=== PATIENT | female | born 1960 | race Caucasian/White ===

== ENCOUNTER 2016-10-30 05:53 | Day surgery (SDC) | payer OTHER ==
[2016-10-30] MEDS ORDERED: Lactated Ringers 1,000 ML IV SCH (06:30)
[2016-10-30] MEDS ORDERED: DIPRIVAN 200 MG/20 ML IV ONE (08:00)
[2016-10-30 08:57] VITALS: BP 131/78; PULSE 53; O2SAT 100
--- NOTE | 2016-10-30 10:19 | OP ---
SURGERY DATE/TIME: 10/30/2016724 PREOPERATIVE DIAGNOSIS: Screening exam. POSTOPERATIVE DIAGNOSIS: Small polyp in the sigmoid colon. PROCEDURE: Colonoscopy with biopsy. SURGEON: Dr. Díaz. ANESTHESIA: Medications given by anesthesia department. HISTORY: The patient is a 56 year-old white female presenting now for first screening colonoscopy. She reports her mother of colon cancer. The patient was appraised of the risks of the procedure including the risk of perforation, phlebitis, untoward reaction to medication, bleeding, and missed lesions. The patient verbalized her understanding and desired to have the procedure performed. DESCRIPTION OF PROCEDURE: The patient was given the medications by the anesthesia department. She had continuous pulse oximetry, ECG monitoring, intermittent blood pressure monitoring, and tidal CO2 monitoring during the examination. She was placed in the left lateral decubitus position. A digital rectal examination was performed and revealed normal anal sphincter tone and no masses. The flexible Olympus pediatric colonoscope was used to intubate the rectum. A view of the colon was developed sequentially to the cecum. Upon insertion and withdrawal, there was noted one small polyp in the sigmoid colon which was suspicious for adenomatous change. Biopsies were obtained. The scope was removed from the patient who tolerated the procedure well and sent back to outpatient recovery in good condition. The prep was noted to be good.
== END 2016-10-30 08:50 | disposition home or self-care (01) ==
LOC: SDC 05:53
PROVIDERS: ATTEND Family Medicine
PROC: 0DBN8ZX Excision of Sigmoid Colon, Via Natural or Artificial Opening Endoscopic, Diagnostic (ICD-10-PCS; principal; 2016-10-30)
DX: Z12.11 Encounter for screening for malignant neoplasm of colon (principal)
CPT/HCPCS: 00810; 36415; J2704

== ENCOUNTER 2017-10-02 20:14 | Observation (INO) | payer OTHER ==
[2017-10-02] MEDS ORDERED: Pepcid 20 MG VIAL IV ONE ×2 (20:20→20:23)
[2017-10-02] MEDS ORDERED: solu-MEDROL 125 MG IV ONE (20:20)
[2017-10-02] MEDS ORDERED: solu-MEDROL 125 MG ONE (20:23)
[2017-10-02] MEDS ORDERED: Sodium Chloride 0.9% 1000 ML 1,000 ML ONE ×2 (20:24→20:38)
--- NOTE | 2017-10-02 20:33 | ERPHSYRPT ---
- History of Present Illness Time Seen by Provider: 10/02/17 20:28 Source: patient, EMS Exam Limitations: no limitations Physician History: patient with history of peanut allerry who presents status post exposure to peanuts. Apparently pt. was around walnuts, but denies ingesting any. In either case, patient began having shortness of breath along with hives. EMS was calledprior to patient receiving an EpiPen injection. Upon EMS arrival, patient's O2 sats were noted to be in the 80s along with generalized hives. Patient was able to talk in multiple word sentences and was awake and alert. Patient also received Benadryl 50 mg IV along with albuterol breathing treatment. Rash was improved, as well as her O2 sats, which was above 93% upon arrival. Patient denies any chest pain, fever, recent cough, vomiting, diarrhea or any recent illnesses. Timing/Duration: hour(s) (1) Severity: severe Modifying Factors: Improves With: other (Walnuts exposure) Associated Symptoms: shortness of breath, rash, weakness, No nausea, No vomiting , No heartburn, No diaphoresis, No cough, No headaches, No loss of appetite, No syncope, No seizure Allergies/Adverse Reactions: peanut Allergy (Severe, Verified 10/30/16 06:12) Difficulty Breathing peanut oil Allergy (Severe, Verified 10/30/16 06:12) Difficulty Breathing codeine [Codeine] Adverse Reaction (Severe, Verified 10/30/16 06:12) Headache hydrocodone [Hydrocodone] Adverse Reaction (Severe, Verified 10/30/16 06:12) Headache Home Medications: Duloxetine HCl [Duloxetine HCl] 30 mg PO DAILY 10/02/17 [History] Lisinopril/Hydrochlorothiazide [Lisinopril-Hctz 10-12.5 mg Tab] 1 tab PO DAILY 10/02/17 [History] Hx Tetanus, Diphtheria Vaccination/Date Given: Yes Hx Influenza Vaccination/Date Given: No Hx Pneumococcal Vaccination/Date Given: No - Review of Systems Constitutional: No Fever, No Chills Eyes: No Symptoms Ears, Nose, & Throat: No Symptoms Respiratory: Dyspnea, Wheezing, No Cough Cardiac: No Symptoms, No Chest Pain, No Edema, No Syncope Abdominal/Gastrointestinal: No Symptoms, No Abdominal Pain, No Nausea, No Vomiting, No Diarrhea Genitourinary Symptoms: No Symptoms, No Dysuria Musculoskeletal: No Symptoms, No Back Pain, No Neck Pain Skin: Rash (Generalized erythematous rash) Neurological: No Dizziness, No Focal Weakness, No Sensory Changes Psychological: No Symptoms Endocrine: No Symptoms Hematologic/Lymphatic: No Symptoms All Other Systems: Reviewed and Negative - Past Medical History Pertinent Past Medical History: Yes Neurological History: No Pertinent History ENT History: No Pertinent History Cardiac History: No Pertinent History Respiratory History: Pulmonary Embolism, Sleep Apnea Endocrine Medical History: No Pertinent History Musculoskeletal History: No Pertinent History GI Medical History: Ulcer History: No Pertinent History Psycho-Social History: No Pertinent History, Depression Female Reproductive Disorders: No Pertinent History - Past Surgical History Past Surgical History: Yes Neuro Surgical History: No Pertinent History Cardiac: No Pertinent History Respiratory: No Pertinent History Gastrointestinal: No Pertinent History Genitourinary: No Pertinent History Musculoskeletal: No Pertinent History Female Surgical History: Section, Tubal Ligation, Other Other Surgical History: "bladder tie up" - Social History Smoking Status: Current every day smoker How long have you smoked: 30yr Exposure to second hand smoke: Yes Alcohol Use: few times a week Drug Use: none Patient Lives Alone: No - Nursing Vital Signs Nursing Vital Signs: Initial Vital Signs Temperature 96.4 F 10/02/17 20:26 Pulse Rate 135 H 10/02/17 20:26 Respiratory Rate 30 H 10/02/17 20:26 Blood Pressure 78/52 10/02/17 20:26 O2 Sat by Pulse Oximetry 88 L 10/02/17 20:26 Pain Scale Pain Intensity 0 aSolu-Medrol and. - Physical Exam General Appearance: mild distress Eye Exam: PERRL/EOMI, eyes nml inspection Ears, Nose, Throat Exam: normal ENT inspection, TMs normal, pharynx normal, moist mucous membranes Neck Exam: normal inspection, non-tender, supple, full range of motion Respiratory Exam: normal breath sounds, lungs clear, No respiratory distress Cardiovascular Exam: regular rate/rhythm, normal heart sounds, normal peripheral pulses, tachycardia, capillary refill <2 sec Gastrointestinal/Abdomen Exam: soft, normal bowel sounds, No tenderness, No mass Back Exam: normal inspection, normal range of motion, No CVA tenderness, No vertebral tenderness Extremity Exam: normal inspection, normal range of motion, pelvis stable Neurologic Exam: alert, oriented x 3, cooperative, normal mood/affect, nml cerebellar function, nml station & gait, sensation nml, No motor deficits Skin Exam: normal color, warm, dry, rash (patient with erythematous rash on trunk and extremities. We'll her) Lymphatic Exam: No adenopathy SpO2 Interpretation: hypoxic Oxygen Delivery: Nasal Cannula (4) - Course Nursing assessment & vital signs reviewed: Yes EKG Interpreted by Me: RATE (130), Sinus Tach, NORMAL AXIS, NORMAL INTERVALS, Non-specific ST Changes - Radiology Exams Chest X-ray Interpretation: Interpreted by me, No Pneumonia Ordered Tests: Active Orders 24 hr Category Date Time Status ACCUCHECK [Accucheck] STAT Care 10/02/17 20:51 Active Loan Processor STAT Care 10/02/17 20:27 Active EKG-ER Only STAT Care 10/02/17 20:24 Active IV Insertion STAT Care 10/02/17 20:49 Active IV Insertion-2nd Peripheral STAT Care 10/02/17 20:49 Active CHEST 1 VIEW (PORTABLE) Stat Exams 10/02/17 20:26 Taken ABG [ARTERIAL BLOOD GASES] Stat Lab 10/02/17 20:45 Completed BMP Stat Lab 10/02/17 20:38 Completed CBC W DIFF Stat Lab 10/02/17 20:38 Completed Lactic Acid Urgent Lab 10/02/17 20:55 Results Manual Differential NC Stat Lab 10/02/17 20:38 Completed Respiratory Nebulizer STAT RT 10/02/17 20:42 Completed Medication Summary Discontinued Medications Generic Name Dose Route Start Last Admin Trade Name Freq PRN Reason Stop Dose Admin Albuterol Sulfate 2.5 mg 10/02/17 20:42 10/02/17 21:04 Proventil 2.5 Mg/3 Ml Neb IH 10/02/17 20:43 2.5 mg STAT ONE Administration Albuterol Sulfate Confirm 10/02/17 20:59 Proventil 2.5 Mg/3 Ml Neb Administered 10/02/17 21:00 Dose 2.5 mg IH .STK-MED ONE Famotidine 20 mg 10/02/17 20:20 10/02/17 20:48 Pepcid 20 Mg Vial IV 10/02/17 20:21 20 mg STAT ONE Administration Famotidine Confirm 10/02/17 20:23 Pepcid 20 Mg Vial Administered 10/02/17 20:24 Dose 20 mg IV .STK-MED ONE Sodium Chloride Confirm 10/02/17 20:24 Sodium Chloride 0.9% 1000 Ml Administered 10/02/17 20:25 Dose 1,000 mls @ ud .ROUTE .STK-MED ONE Sodium Chloride 500 mls @ 999 mls/hr 10/02/17 20:24 10/02/17 20:48 Sodium Chloride 0.9% 1000 Ml IV 10/02/17 20:54 999 mls/hr .Q31M STA Administration Sodium Chloride Confirm 10/02/17 20:38 Sodium Chloride 0.9% 1000 Ml Administered 10/02/17 20:39 Dose 1,000 mls @ ud .ROUTE .STK-MED ONE Methylprednisolone Sodium Succinate 125 mg 10/02/17 20:20 10/02/17 20:47 Solu-Medrol 125 Mg IV 10/02/17 20:21 125 mg STAT ONE Administration Methylprednisolone Sodium Succinate Confirm 10/02/17 20:23 Solu-Medrol 125 Mg Administered 10/02/17 20:24 Dose 125 mg .ROUTE .STK-MED ONE Lab/Rad Data: Laboratory Result Diagrams 10/02/17 20:38 10/02/17 20:38 Laboratory Results 10/02/17 10/02/17 10/02/17 Range/Units 20:55 20:45 20:38 WBC (4.0-10.5) K/mm3 RBC (4.1-5.4) M/mm3 Hgb (12.0-16.0) gm/dl Hct (35-47) % MCV (78-100) fl MCH (26-32) pg MCHC (32-36) g/dl RDW (11.5-14.0) % Plt Count (150-450) K/mm3 MPV (6-9.5) fl Absolute Granulocytes (1.4-6.9) Segmented Neutrophils (36.0-66.0) % Band Neutrophils (0.0-2.0) % Lymphocytes (Manual) (24-44) % Differential Comment Atypical Lymphocytes % Platelet Estimate (NORMAL) Puncture Site LEFT BRACHIAL pCO2 40 (35-45) mmHg pO2 86 (75-100) mmHg Base Excess -6.3 L (-2.0-2.0) O2 Saturation 91.8 L (94-100) g/dF ABG pH 7.30 L (7.35-7.45) ABG HCO3 19.7 L (22-28) ABG O2 Sat (Measured) 98.3 (95-100) % Nguyễn Test NOT APPLICABLE A-a Gradient 149 a/A Ratio 0.37 Hemoglobin 13.5 Carboxyhemoglobin 5.6 (0.0-6.9) % THgb Methemoglobin 1.0 L (1.4-1.5) % Temperature 37.0 C POC O2 Flow Rate 40 % Sodium 140 (137-145) mmol/L Potassium 2.4 L* 3.1 L (3.5-5.1) mmol/L Chloride 101 (98-107) mmol/L Carbon Dioxide 21 L (22-30) mmol/L Anion Gap 20.7 H (5-15) MEQ/L BUN 16 (7-17) mg/dL Creatinine 1.19 H (0.52-1.04) mg/dL Estimated GFR 50 ML/MIN Glucose 238 H (74-106) mg/dL Lactic Acid 4.6 H (0.4-2.0) Calcium 9.3 (8.4-10.2) mg/dL 10/02/17 Range/Units 20:38 WBC 6.3 (4.0-10.5) K/mm3 RBC 4.83 (4.1-5.4) M/mm3 Hgb 14.1 (12.0-16.0) gm/dl Hct 43.6 (35-47) % MCV 90.3 (78-100) fl MCH 29.2 (26-32) pg MCHC 32.3 (32-36) g/dl RDW 14.4 H (11.5-14.0) % Plt Count 323 (150-450) K/mm3 MPV 10.0 H (6-9.5) fl Absolute Granulocytes 3.23 (1.4-6.9) Segmented Neutrophils 41 (36.0-66.0) % Band Neutrophils 7 H (0.0-2.0) % Lymphocytes (Manual) 47 H (24-44) % Differential Comment NORMAL Atypical Lymphocytes 5 % Platelet Estimate NORMAL (NORMAL) Puncture Site pCO2 (35-45) mmHg pO2 (75-100) mmHg Base Excess (-2.0-2.0) O2 Saturation (94-100) g/dF ABG pH (7.35-7.45) ABG HCO3 (22-28) ABG O2 Sat (Measured) (95-100) % Nguyễn Test A-a Gradient a/A Ratio Hemoglobin Carboxyhemoglobin (0.0-6.9) % THgb Methemoglobin (1.4-1.5) % Temperature C POC O2 Flow Rate % Sodium (137-145) mmol/L Potassium (3.5-5.1) mmol/L Chloride (98-107) mmol/L Carbon Dioxide (22-30) mmol/L Anion Gap (5-15) MEQ/L BUN (7-17) mg/dL Creatinine (0.52-1.04) mg/dL Estimated GFR ML/MIN Glucose (74-106) mg/dL Lactic Acid (0.4-2.0) Calcium (8.4-10.2) mg/dL - Progress Progress: improved Progress Note: 10/02/17 22:55 patient was given Solu-Medrol, Pepcid, albuterol nebulizer along with IV fluids. This did improve patient's blood pressure, O2 sats up to greater than 95% along with mental status. Despite improvement, patient had a severe allergic reaction. We will admit patient for further treatment and care Discussed with .: Rolando Will see patient in: ED Counseled pt/family regarding: lab results, diagnosis, rad results - Departure Time of Disposition: 22:58 Departure Disposition: Observation Clinical Impression: Allergic reaction Condition: Stable Critical Care Time: No Referrals: NNEKA CANADA [Primary Care Provider] -
[2017-10-02] MEDS ORDERED: PROVENTIL 2.5 MG/3 ML NEB IH ONE ×2 (20:42→20:59)
[2017-10-02 20:51] LABS: A-aADO2 149; ABG HEMOGLOBIN 13.5; ARTERIAL BLD GAS O2 SATURATION 98.3 % (95-100); ARTERIAL BLOOD GAS BASE EXCESS -6.3 (-2.0-2.0); ARTERIAL BLOOD GAS FIO2 40 %; ARTERIAL BLOOD GAS PCO2 40 mmHg (35-45); ARTERIAL BLOOD GAS PO2 86 mmHg (75-100); CARBOXYHEMOGLOBIN 5.6 % THgb (0.0-6.9); HCO3- 19.7 (22-28); HGB O2 SAT 91.8 g/dF (94-100); paO2 pAO1 0.37
[2017-10-02 20:52] LABS: ABG POTASSIUM 2.4 (3.5-5.1); ABG SITE LEFT BRACHIAL
[2017-10-02 20:57] LABS: Lactic Acid 4.6 (0.4-2.0)
[2017-10-02 21:07] LABS: Granulocyte Absolute (ANC) 3.23 (1.4-6.9); Hematocrit 43.6 % (35-47); Hemoglobin 14.1 gm/dl (12.0-16.0); Mean Cell Volume 90.3 fl (78-100); Mean Corpuscular Hemoglobin 29.2 pg (26-32); Mean Corpuscular Hgb Concent. 32.3 g/dl (32-36); Platelet Count 323 K/mm3 (150-450); Red Blood Count 4.83 M/mm3 (4.1-5.4); Red Cell Distribution Width 14.4 % (11.5-14.0); White Blood Count 6.3 K/mm3 (4.0-10.5)
[2017-10-02 21:19] LABS: ANION GAP 20.7 MEQ/L (5-15); Calcium 9.3 mg/dL (8.4-10.2); Creatinine 1 1.19 mg/dL (0.52-1.04); Potassium 3.1 mmol/L (3.5-5.1)
[2017-10-02 22:11] LABS: ATYPICAL LYMPHS 5 %; BAND 7 % (0.0-2.0); Lymphocytes 47 % (24-44); Neutrophils 41 % (36.0-66.0); Platelet Estimate NORMAL (NORMAL); Total Cells Counted 100
[2017-10-02 23:22] LABS: Lactic Acid 3.8 (0.4-2.0)
[2017-10-02] MEDS ORDERED: BENADRYL 25 MG CAPSULE PO PRN (23:52)
[2017-10-03] MEDS: solu-MEDROL 125 MG IV SCH ×2 (00:28→06:00)
[2017-10-03 06:29] LABS: Lactic Acid 4.7 (0.4-2.0)
[2017-10-03] MEDS ORDERED: Lactated Ringers 1,000 ML IV ONE (07:52)
--- NOTE | 2017-10-03 07:52 | PCM.HP ---
History of Present Illness - Chief Complaint Chief Complaint: alleric reaction Date: 10/03/17 History of Present Illness: is a 57 year old female. Medications & Allergies Home Medications: Home Medication List Duloxetine HCl [Duloxetine HCl] 30 mg PO DAILY 10/02/17 [History Confirmed 10/02] Lisinopril/Hydrochlorothiazide [Lisinopril-Hctz 10-12.5 mg Tab] 1 tab PO DAILY 10/02/17 [History Confirmed 10/02/17] Allergies/Adverse Reactions: Allergies Allergy/AdvReac Type Severity Reaction Status Date / Time peanut Allergy Severe Difficulty Verified 10/30/16 06:12 Breathing peanut oil Allergy Severe Difficulty Verified 10/30/16 06:12 Breathing codeine [Codeine] AdvReac Severe Headache Verified 10/30/16 06:12 hydrocodone [Hydrocodone] AdvReac Severe Headache Verified 10/30/16 06:12 bee pollen AdvReac Hives Verified 10/03/17 07:26 bee venom protein (honey bee) AdvReac Hives Verified 10/03/17 07:26 Honey AdvReac Hives Uncoded 10/03/17 07:26 - Past Medical History Past Medical History: Yes Neurological History: No Pertinent History ENT History: No Pertinent History Cardiac History: No Pertinent History Respiratory History: Pulmonary Embolism, Sleep Apnea Endocrine Medical History: No Pertinent History Musculoskelatal History: No Pertinent History GI Medical History: Ulcer History: No Pertinent History Pyscho-Social History: No Pertinent History, Depression Reproductive Disorders: No Pertinent History - Female History Are you now?: No - Past Surgical History Past Surgical History: Yes Neuro Surgical History: No Pertinent History Cardiac History: No Pertinent History Respiratory Surgery: No Pertinent History GI Surgical History: No Pertinent History Genitourinary Surgical Hx: No Pertinent History Musculskeletal Surgical Hx: No Pertinent History Female Surgical History: Section, Tubal Ligation, Other Other Surgical History: "bladder tie up" - Social History Smoking Status: Current every day smoker How long have you smoked: 1/2 pk Exposure to second hand smoke: Yes Alcohol: None Drug Use: none - Physical Exam Vital Signs: Vital Signs - 24 hr Temp Pulse Resp BP Pulse Ox 10/03/17 07:36 97.6 F 72 18 140/68 96 10/03/17 04:00 98.5 F 75 18 129/74 94 L 10/03/17 03:43 95 10/03/17 01:34 98.0 F 84 17 119/69 99 10/02/17 22:40 95 H 17 111/74 99 10/02/17 21:53 81 18 138/76 98 10/02/17 21:50 83 20 138/76 98 10/02/17 21:07 102 H 20 99 10/02/17 21:06 90 18 124/76 100 10/02/17 20:43 97 10/02/17 20:26 96.4 F 135 H 30 H 78/52 88 L Oxygen-Last 24 hours O2 Percentage 2 Liters = 28% O2 Percentage 2 Liters = 28% O2 Percentage 4 Liters = 36% O2 Percentage 4 Liters = 36% Results - Labs Lab/Micro Results: Lab Results-Last 24 Hours 10/03/17 Range/Units 05:20 Lactic Acid 4.7 H (0.4-2.0) - Other Procedures and Tests Respiratory Therapy 10/03/17 01:56 Smoking Cessation Education ONCE
--- NOTE | 2017-10-03 09:17 | XRAY ---
Indication: Short of breath. Comparison: December 05, 2015. Portable chest again hyperinflated and clear. Heart and mediastinal structures within normal limits. Bony thorax intact. Impression: Stable nonacute chest.
[2017-10-03] MEDS ORDERED: Cymbalta 30 MG Capsule PO SCH (10:00)
[2017-10-03] MEDS ORDERED: hydroDIURIL 25 MG PO SCH (10:00)
[2017-10-03] MEDS ORDERED: NON-FORMULARY ITEM (Lisinopril/Hydrochlorothiazide [Lisinopril-Hctz 10-12.5 Mg Tab] 1 TAB) PO SCH (10:00)
[2017-10-03] MEDS ORDERED: Zestril 10 MG PO SCH (10:00)
[2017-10-03 11:43] VITALS: BP 132/65; PULSE 66; O2SAT 95
--- NOTE | 2017-10-03 12:41 | PCM.DCORD ---
- Discharge Discharge Date: 10/03/17 Disposition: Home, Self-Care Condition: Stable Prescriptions: Continue Lisinopril/Hydrochlorothiazide [Lisinopril-Hctz 10-12.5 mg Tab] 1 tab PO DAILY Duloxetine HCl 30 mg PO DAILY Follow up with: NNEKA CANADA [Primary Care Provider] - 1 Week
[2017-10-03] MEDS ORDERED: solu-MEDROL 125 MG IV SCH (14:00)
== END 2017-10-03 14:30 | disposition home or self-care (01) ==
LOC: ED 20:14 → MED SURG 23:50
PROVIDERS: ADMIT Family Medicine; ATTEND Family Medicine
DX: T78.1XXA Other adverse food reactions, not elsewhere classified, initial encounter (principal); Z86.711 Personal history of pulmonary embolism; G47.30 Sleep apnea, unspecified; F32.9 Major depressive disorder, single episode, unspecified; Z72.0 Tobacco use
CPT/HCPCS: 36000; 36415; 36600; 51702; 71045; 80048; 82375; 82803; 82962; 83605; 85025; 93005; 93041; 93268; 94640; 96360; 96365; 96374; 96375; 99285; G0378; J2930; A9270-GY

== ENCOUNTER 2018-11-24 11:55 | Observation (INO) | payer OTHER ==
[2018-11-24] MEDS ORDERED: MORPHINE SULFATE 4 MG INJ IV ONE (12:14)
[2018-11-24] MEDS ORDERED: ZOFRAN ODT 4 MG PO ONE (12:14)
[2018-11-24] MEDS ORDERED: Sodium Chloride 0.9% 1000 ML 1,000 ML IV STA (12:14)
--- NOTE | 2018-11-24 12:17 | ERPHSYRPT ---
- History of Present Illness Time Seen by Provider: 11/24/18 12:08 Historian: patient Exam Limitations: no limitations Patient Subjective Stated Complaint: Pt states "The pain started last night, I thought it was gas but it is just getting worse. It hurts on my lower abdomen. We went to [facility] but they were packed so we just thought we would come to the ed." Triage Nursing Assessment: Pt presnted alert and oriented X 3, skin pwd. Pt ambulates with a hunched over gait holding onto her abodmen. Pt in no apparent respiratory distress. Physician History: 58-year-old white female arrives with complaint of right lower quadrant abdominal pain described as sharp symptoms going on since last night she has not any vomiting no diarrhea no fevers. Past medical history includes sleep apnea, pulmonary embolism, ulcers, depression. Past surgical history includes , tubal ligation, bladder suspension. Social history includes tobacco use occasional alcohol use she denies illicit drug use Timing/Duration: yesterday (last night) Activities at Onset: none Quality: sharpness Abdominal Pain Onset Location: RLQ Pain Radiation: no radiation Severity of Pain-Max: moderate Modifying Factors: Improves With: nothing Associated Symptoms: No back, No chest pain, No diaphoresis, No diarrhea, No fever/chills, No fatigue, No headache, No heartburn, No loss of appetite, No nausea, No neck pain, No rash, No shortness of breath, No syncope, No vomiting, No weakness Previous symptoms: no prior history Allergies/Adverse Reactions: peanut Allergy (Severe, Verified 10/30/16 06:12) Difficulty Breathing peanut oil Allergy (Severe, Verified 10/30/16 06:12) Difficulty Breathing codeine [Codeine] Adverse Reaction (Severe, Verified 10/30/16 06:12) Headache hydrocodone [Hydrocodone] Adverse Reaction (Severe, Verified 10/30/16 06:12) Headache bee pollen Adverse Reaction (Verified 10/03/17 07:26) Hives bee venom protein (honey bee) Adverse Reaction (Verified 10/03/17 07:26) Hives Honey Adverse Reaction (Uncoded 10/03/17 07:26) Hives Home Medications: No Reportable Medications [No Reported Medications] 11/24/18 [History] Hx Tetanus, Diphtheria Vaccination/Date Given: Yes Hx Influenza Vaccination/Date Given: Yes Hx Pneumococcal Vaccination/Date Given: No Immunizations Up to Date: Yes - Review of Systems Constitutional: No Fever, No Chills Eyes: No Symptoms Ears, Nose, & Throat: No Symptoms Respiratory: No Cough, No Dyspnea Cardiac: No Chest Pain, No Edema, No Syncope Abdominal/Gastrointestinal: Abdominal Pain (right lower quadrant abdominal pain) , No Nausea, No Vomiting, No Diarrhea, No Constipation, No Hematemesis, No Hematochezia, No Melena, No Dysphagia, No Appetite Changes Genitourinary Symptoms: No Dysuria Musculoskeletal: No Back Pain, No Neck Pain Skin: No Rash Neurological: No Dizziness, No Focal Weakness, No Sensory Changes Psychological: No Symptoms Endocrine: No Symptoms All Other Systems: Reviewed and Negative - Past Medical History Pertinent Past Medical History: Yes Neurological History: No Pertinent History ENT History: No Pertinent History Cardiac History: No Pertinent History Respiratory History: Pulmonary Embolism, Sleep Apnea Endocrine Medical History: No Pertinent History Musculoskeletal History: No Pertinent History GI Medical History: Ulcer History: No Pertinent History Psycho-Social History: No Pertinent History, Depression Female Reproductive Disorders: No Pertinent History - Past Surgical History Past Surgical History: Yes Neuro Surgical History: No Pertinent History Cardiac: No Pertinent History Respiratory: No Pertinent History Gastrointestinal: No Pertinent History Genitourinary: No Pertinent History Musculoskeletal: No Pertinent History Female Surgical History: Section, Tubal Ligation, Other Other Surgical History: "bladder tie up" - Social History Smoking Status: Current every day smoker How long have you smoked: years Exposure to second hand smoke: Yes Alcohol Use: few times a week Drug Use: none Patient Lives Alone: No - Female History Hx Now: No - Nursing Vital Signs Nursing Vital Signs: Initial Vital Signs Temperature 98.4 F 11/24/18 11:59 Pulse Rate 105 H 11/24/18 11:59 Respiratory Rate 18 11/24/18 11:59 Blood Pressure 159/92 11/24/18 11:59 O2 Sat by Pulse Oximetry 97 11/24/18 11:59 Pain Scale Pain Intensity 6 - Physical Exam General Appearance: mild distress, alert Eye Exam: PERRL/EOMI, eyes nml inspection Ears, Nose, Throat Exam: normal ENT inspection, pharynx normal, moist mucous membranes Neck Exam: normal inspection, non-tender, supple, full range of motion Respiratory Exam: normal breath sounds, lungs clear, No respiratory distress Cardiovascular Exam: regular rate/rhythm, normal heart sounds, capillary refill <2 sec Gastrointestinal/Abdomen Exam: soft, normal bowel sounds, tenderness (right lower quadrant abdominal tenderness), No distention, No mass, No guarding, No ecchymosis, No pulsatile mass, No rebound, No hernia, No hepatomegaly, No organomegaly, No splenomegaly Back Exam: normal inspection, normal range of motion, No CVA tenderness, No vertebral tenderness Extremity Exam: normal inspection, normal range of motion, pelvis stable Neurologic Exam: alert, oriented x 3, cooperative, dental practitioner II-XII nml as tested, normal mood/affect, nml cerebellar function, sensation nml, No motor deficits Skin Exam: normal color, warm, dry SpO2 Interpretation: normal (97%) SpO2: 97 Ordered Tests: Active Orders 24 hr Category Date Time Status IV Insertion STAT Care 11/24/18 12:14 Completed ABDOMEN AND PELVIS W CONTRAST [CT] Stat Exams 11/24/18 12:49 Completed AMYLASE Stat Lab 11/24/18 12:10 Completed CBC W DIFF Stat Lab 11/24/18 12:10 Completed CMP Stat Lab 11/24/18 12:10 Completed LIPASE Stat Lab 11/24/18 12:10 Completed UA W/RFX UR CULTURE Stat Lab 11/24/18 13:53 Completed Medication Summary Generic Name Dose Route Start Last Admin Trade Name Freq PRN Reason Stop Dose Admin Potassium Chloride/Dextrose/Sod Cl 1,000 mls @ 100 mls/hr 11/24/18 19:00 18:49 D5w/0.45ns W/ 20meq Kcl 1000 Ml IV 12/24/18 18:59 100 mls/hr .Q10H NANNETTE Administration Discontinued Medications Generic Name Dose Route Start Last Admin Trade Name Freq PRN Reason Stop Dose Admin Sodium Chloride 1,000 mls @ 999 mls/hr 11/24/18 12:14 11/24/18 14:11 Sodium Chloride 0.9% 1000 Ml IV 11/24/18 13:14 Infused .Q1H1M STA Infusion Morphine Sulfate 4 mg 11/24/18 12:14 11/24/18 12:23 Morphine Sulfate 4 Mg Inj IV 11/24/18 12:15 4 mg STAT ONE Administration Ondansetron HCl 4 mg 11/24/18 12:14 11/24/18 12:25 Zofran Odt 4 Mg PO 11/24/18 12:15 Not Given STAT ONE Ondansetron HCl 4 mg 11/24/18 12:24 11/24/18 12:25 Zofran 4 Mg/2 Ml Vial IV 11/24/18 12:25 4 mg STAT ONE Administration Lab/Rad Data: Laboratory Result Diagrams 11/24/18 12:10 11/24/18 12:10 Laboratory Results 11/24/18 11/24/18 11/24/18 Range/Units 13:53 12:10 12:10 WBC 13.7 H (4.0-10.5) K/mm3 RBC 4.91 (4.1-5.4) M/mm3 Hgb 14.4 (12.0-16.0) gm/dl Hct 43.7 (35-47) % MCV 89.0 (78-100) fl MCH 29.3 (26-32) pg MCHC 33.0 (32-36) g/dl RDW 14.6 H (11.5-14.0) % Plt Count 288 (150-450) K/mm3 MPV 10.2 H (6-9.5) fl Gran % 84.9 H (36.0-66.0) % Eos # (Auto) 0.04 (0-0.5) Absolute Lymphs (auto) 0.95 L (1.0-4.6) Absolute Monos (auto) 1.07 (0.0-1.3) Lymphocytes % 6.9 L (24.0-44.0) % Monocytes % 7.8 (0.0-12.0) % Eosinophils % 0.3 (0.00-5.0) % Basophils % 0.1 (0.0-0.4) % Absolute Granulocytes 11.62 H (1.4-6.9) Basophils # 0.01 (0-0.4) Sodium 137 (137-145) mmol/L Potassium 3.9 (3.5-5.1) mmol/L Chloride 100 (98-107) mmol/L Carbon Dioxide 24 (22-30) mmol/L Anion Gap 16.9 H (5-15) MEQ/L BUN 10 (7-17) mg/dL Creatinine 0.97 (0.52-1.04) mg/dL Estimated GFR > 60.0 ML/MIN Glucose 123 H (74-106) mg/dL Calcium 10.0 (8.4-10.2) mg/dL Total Bilirubin 0.50 (0.2-1.3) mg/dL AST 21 (14-36) U/L ALT 24 (0-35) U/L Alkaline Phosphatase 126 (38-126) U/L Serum Total Protein 8.2 (6.3-8.2) g/dL Albumin 4.5 (3.5-5.0) g/dL Amylase 70 (30-110) U/L Lipase 50 (23-300) U/L Urine Color STRAW (YELLOW) Urine Appearance CLEAR (CLEAR) Urine pH 7.0 (5-6) Ur Specific [place] 1.017 (1.005-1.025) Urine Protein NEGATIVE (Negative) Urine Ketones NEGATIVE (NEGATIVE) Urine Blood NEGATIVE (0-5) Ck/ul Urine Nitrite NEGATIVE (NEGATIVE) Urine Bilirubin NEGATIVE (NEGATIVE) Urine Urobilinogen NEGATIVE (0-1) mg/dL Ur Leukocyte Esterase NEGATIVE (NEGATIVE) Urine WBC (Auto) NONE (0-5) /HPF Urine RBC (Auto) NONE (0-2) /HPF U Epithel Cells (Auto) RARE (FEW) /HPF Urine Bacteria (Auto) NONE (NEGATIVE) /HPF Urine Mucus (Auto) SLIGHT (NEGATIVE) /HPF Urine Culture Reflexed NO (NO) Urine Glucose NEGATIVE (NEGATIVE) mg/dL - Progress Progress: improved Progress Note: 11/24/18 18:51 Patient with acute appendicitis on CT abdomen. Dr. Perry was contacted. He requested that Dr. Deng take care of the patient on the floor. took the patient to surgery. case was discussed with Dr. Deng as well 11/24/18 18:52 - Departure Departure Disposition: Observation Clinical Impression: Acute appendicitis Qualifiers: Acute appendicitis type: unspecified acute appendicitis type Qualified Code(s) : K35.80 - Unspecified acute appendicitis Abdominal pain Qualifiers: Abdominal location: right lower quadrant Qualified Code(s): R10.31 - Right lower quadrant pain Condition: Fair Critical Care Time: No
[2018-11-24] MEDS ORDERED: Zofran 4 MG/2 ML VIAL IV ONE ×2 (12:24→14:58)
[2018-11-24 12:46] LABS: ALBUMIN 4.5 g/dL (3.5-5.0); ALKALINE PHOSPHATASE 126 U/L (38-126); AMYLASE 70 U/L (30-110); ANION GAP 16.9 MEQ/L (5-15); BLOOD UREA NITROGEN 10 mg/dL (7-17); CHLORIDE 100 mmol/L (98-107); Carbon Dioxide 24 mmol/L (22-30); Creatinine 1 0.97 mg/dL (0.52-1.04); Glucose 123 mg/dL (74-106); LIPASE 50 U/L (23-300); Potassium 3.9 mmol/L (3.5-5.1); SGOT/AST 21 U/L (14-36); SGPT/ALT 24 U/L (0-35); SODIUM 137 mmol/L (137-145); Total Protein 8.2 g/dL (6.3-8.2)
[2018-11-24 12:54] LABS: BASOPHIL % 0.1 % (0.0-0.4); Basophil (Absolute #) 0.01 (0-0.4); Eosinophil % 0.3 % (0.00-5.0); Eosinophil (Absolute #) 0.04 (0-0.5); Granulocyte Absolute (ANC) 11.62 (1.4-6.9); Granulocytes % 84.9 % (36.0-66.0); Hematocrit 43.7 % (35-47); Hemoglobin 14.4 gm/dl (12.0-16.0); Lymphocyte (Absolute #) 0.95 (1.0-4.6); Lymphocytes % 6.9 % (24.0-44.0); Mean Corpuscular Hemoglobin 29.3 pg (26-32); Mean Platelet Volume 10.2 fl (6-9.5); Monocyte (Absolute #) 1.07 (0.0-1.3); Monocytes % 7.8 % (0.0-12.0); Platelet Count 288 K/mm3 (150-450); Red Blood Count 4.91 M/mm3 (4.1-5.4); Red Cell Distribution Width 14.6 % (11.5-14.0); White Blood Count 13.7 K/mm3 (4.0-10.5)
[2018-11-24 13:59] LABS: Appearance CLEAR (CLEAR); Bilirubin NEGATIVE (NEGATIVE); Blood NEGATIVE Ery/ul (0-5); Epithelial Cells RARE /HPF (FEW); Glucose NEGATIVE (NEGATIVE); Ketones NEGATIVE (NEGATIVE); Leukocyte Esterase NEGATIVE (NEGATIVE); Mucus SLIGHT /HPF (NEGATIVE); Nitrite NEGATIVE (NEGATIVE); Protein,Urine Dip NEGATIVE (Negative); Specific Gravity 1.017 (1.005-1.025); Urobilinogen NEGATIVE mg/dL (0-1)
--- NOTE | 2018-11-24 14:34 | XRAY ---
Exam: CT of the abdomen and pelvis with IV contrast from 11/24/2018. CTDI: 21.37 Comparison: CT of the abdomen and pelvis with IV contrast from 01/25/2012. Indication: 58-year-old female with lower right side abdomen/pelvic pain, also right side flank pain. Technique: Post-IV contrast axial images were obtained through the abdomen and pelvis during automated injection of 80 cc of Isovue-370 contrast material. Delayed axial images were obtained as well. Reconstructed coronal and sagittal images were created and reviewed. A small amount of radiopaque density is seen within the distal small bowel and right hemicolon which may relate to a small amount of oral contrast or medication. Correlate clinically. Findings: A subpleural 5 mm soft tissue lung nodule is seen anterolaterally at the right lung base on axial image #2 of series #6. This is unchanged from axial image #1 on 01/25/2012. This suggests a nonaggressive process. In addition, more inferiorly within the posterior medial right lung base, there is a 7 mm in diameter soft tissue lung nodule on axial image #8. This may be a couple millimeters larger than that seen on axial image #8 from 01/25/2012. The lack of significant spinning frame changer almost the last 7 years would suggest that this probably represents a nonaggressive process as well. However, since this appears slightly larger, consider a follow-up CT of the chest in 1 year for ongoing monitoring. There is also a tiny calcified granuloma at the medial right lung base on axial image #9. Subtle linear scarring or atelectasis is seen within the left posterior lung sulcus. The liver appears unremarkable. The gallbladder is distended and reveals no dense calcifications within it or gallbladder wall thickening. The spleen appears normal without mass. I believe there is a probable small retrocardiac hiatal hernia. The pancreas appears normal. There is some prominence of the distal descending and proximal transverse duodenum which is fluid filled. This is nonspecific and may simply represent a peristaltic wave. The opacified superior mesenteric artery appears unremarkable. The adrenal glands appear of unremarkable size and configuration. The kidneys reveal no mass, hydronephrosis, or calculi. However, there is new significant scattered renal cortical thinning and scarring present. 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 If the patient has a history of multiple urinary tract infections, chronic reflux nephropathy would need to be considered as well. Incidentally, there is a tiny hypoattenuated lesion measuring about 5 mm in diameter at the inferior pole of the left kidney on axial image #32 of series #2. This likely represents a tiny renal cyst. Moderate atherosclerotic vascular calcification is seen within the abdominal aorta and common iliac arteries. No abdominal aortic aneurysm or abnormal retroperitoneal lymphadenopathy is seen. There is no free intraperitoneal air. There is a small amount of protrusion of intraperitoneal fat into the subcutaneous fat at the level of the umbilicus. The patient has gained weight since 2011. No other ventral hernia is seen. There is marked distention of the appendix within the right lower quadrant, the latter measuring up to about 1.6 cm in maximum diameter. The appendix is fluid-filled. There is a suggestion of a couple small appendicoliths on coronal images #61 and #62. In addition, there is significant periappendiceal stranding and increased attenuation of the fat suggesting inflammation. A distinct abscess cavity is not seen. No drainable fluid collection is noted. I do not see free fluid within the lower midline posterior pelvis. I see no bowel obstruction. Some minimal sigmoid colon diverticulosis without evidence of diverticulitis is seen. A normal-sized anteflexed uterus is noted. The pelvic adnexa appear unremarkable without abnormal mass or pelvic lymphadenopathy. The urinary bladder distends with contrast and reveals no bladder wall thickening or definite mass. A few small calcified pelvic phleboliths are seen within the lower pelvis on each side of midline. The remainder of the deep pelvic sidewalls appears normal. Some nonspecific postinflammatory lymph nodes are seen within each groin. No acute fracture or aggressive bone lesion is seen. Advanced facet osteoarthritis is seen bilaterally at L4-L5 and L5-S1. Impression: 1. Findings consistent with acute appendicitis with probable appendicoliths, fluid-filled markedly dilated appendix, and significant surrounding periappendiceal stranding and inflammation. I see no abscess cavity or bubbles of intraperitoneal air. No free fluid is seen extending to the lower posterior pelvic midline. This report was called to Dr. Cheung at 1:57 PM on 11/24/2018. 2. There is significant scattered bilateral renal cortical thinning and scarring. This is a new finding from 01/25/2012. See above discussion. 3. A couple soft tissue lung nodules are seen at the right lung base, as discussed above. These are probably benign or nonaggressive. However, one of the nodules appears about 2 mm larger than that seen in 2012. Consider a follow-up CT of the chest in 1 year for ongoing monitoring. 4. I believe there is a probable small retrocardiac hiatal hernia. The patient has gained weight since 2012. 5. Some atherosclerotic vascular calcification is seen.
[2018-11-24] MEDS ORDERED: BREVIBLOC 100 MG/10 ML IV ONE (14:58)
[2018-11-24] MEDS ORDERED: BRIDION 200MG/2ML IV ONE (14:58)
[2018-11-24] MEDS ORDERED: DIPRIVAN 200 MG/20 ML IV ONE (14:58)
[2018-11-24] MEDS ORDERED: Zemuron 100 MG/10 ML IJ ONE (14:58)
[2018-11-24] MEDS ORDERED: SUBLIMAZE 250 MCG/5 ML IJ ONE (14:58)
[2018-11-24] MEDS ORDERED: Quelicin Fliptop 200 MG/10 ML IJ ONE (14:58)
[2018-11-24] MEDS ORDERED: MORPHINE SULFATE 10 MG/ML IV ONE (14:58)
[2018-11-24] MEDS ORDERED: Versed 2 MG/2 ML Injection IV ONE (14:58)
[2018-11-24] MEDS ORDERED: KEFZOL 1 GM ONE (15:13)
[2018-11-24] MEDS ORDERED: Lactated Ringers 2,000 ML IV ONE (15:13)
[2018-11-24] MEDS ORDERED: Sensorcaine 0.25% 10 ML ONE (15:13)
--- NOTE | 2018-11-24 15:44 | HP ---
This patient is seen for Dr. Chong Wang who is control officer for our group today and asked that I see the patient while I was doing some outpatient procedures. The patient is an emergency department patient of Dr. Deng. HISTORY OF PRESENT ILLNESS: The patient is a 58 year-old female who has had some history of sleep apnea, hypertension. She did not give me this history but she gave anesthesia the history. She has prior history of blood clots and had been on blood thinners which she stopped those on her own. PAST MEDICAL HISTORY: As mentioned above, hypertension. PAST SURGICAL HISTORY: She had tubal. She had prior colonoscopy. She denied any other abdominal surgeries. MEDICATIONS: The only medication she has been taking recently is lisinopril/hydrochlorothiazide. ALLERGIES: NKDA. FAMILY HISTORY: Colon cancer. SOCIAL HISTORY: No smoking or alcohol abuse. REVIEW OF SYSTEMS: Twelve systems reviewed per admission assessment. She had some nausea. She had some pain localized in right lower quadrant that started yesterday. She denied any vomiting. Denied any fever. LAB DATA AND TESTS: I do not have the labs available. The one printed out through the emergency room showed she had a white blood cell count of 13,000. CT scan showed findings suspicious for acute appendicitis. PHYSICAL EXAMINATION: GENERAL: Slightly uncomfortable white female in no acute distress. HEENT: Sclerae nonicteric. NECK: No JVD. CHEST: Equal excursion, nonlabored breathing. CVS: Regular rhythm and pulse. ABDOMEN: Soft, some tenderness in the right lower quadrant, some trace voluntary guarding. No rebound currently. EXTREMITIES: No edema. NEURO: Alert, moving extremities grossly symmetrically. IMPRESSION: Acute right lower quadrant pain, leukocytosis, history and physical exam findings and CT findings suspicious for acute appendicitis although differential could include diverticulitis, gastroenteritis or other etiology. Given her symptoms, I feel she warrants diagnostic laparoscopy, laparoscopic appendectomy possible open when OR time available. Risks and benefits explained in detail including but not limited to bleeding or infection, risk of trocar injury or hernia, small risk of bowel, bladder or blood vessel injury, small risk of subsequent intra-abdominal abscess or fistula formation possibly requiring percutaneous or open drainage even at a later date, general risk of anesthesia, deep venous thrombosis, pulmonary embolism, pneumonia, possibility of finding a normal appendix likely will remove incidentally and look for other etiology that might need taken care of surgically. She also understands possibility of needing open procedure, perioperative risk of ileus or obstruction but not limited to, possibility of finding other etiology might need other intervention surgically. She understands and agrees to the planned procedure, will proceed with diagnostic laparoscopy, laparoscopic appendectomy possible open when OR time available. Again, this patient is seen for Dr. Chong Wang who is control officer for our group today.
[2018-11-24 15:51] LABS: Appearance CLEAR (CLEAR); Bilirubin NEGATIVE (NEGATIVE); Blood SMALL Ery/ul (0-5); Glucose NEGATIVE (NEGATIVE); Ketones NEGATIVE (NEGATIVE); Leukocyte Esterase NEGATIVE (NEGATIVE); Mucus SLIGHT /HPF (NEGATIVE); Nitrite NEGATIVE (NEGATIVE); Protein,Urine Dip NEGATIVE (Negative); Urobilinogen NEGATIVE mg/dL (0-1)
[2018-11-24] MEDS: D5W/0.45NS W/ 20mEq KCl 1000 ML 1,000 ML IV SCH (18:49)
[2018-11-24] MEDS: Zosyn 3.375GM/100 Ml D5W 3.375 GM/100 ML IVPB IV SCH (19:58)
[2018-11-24] MEDS ORDERED: TYLENOL 325 MG PO PRN (21:22)
[2018-11-24] MEDS ORDERED: Zofran 4 MG/2 ML VIAL IV PRN (21:25)
--- NOTE | 2018-11-24 22:32 | PCM.HP ---
History of Present Illness - Chief Complaint Chief Complaint: lap appy History of Present Illness: is a 58 year old female who presented to the ER with acute onset of abdominal pain, began last night and settled in to the right lower quad, she had a ct in the ER that showed appendicitis. She has been off medication for more than a month, was on lisinopril for htn but has apparently had insurance problems, has not seen a physician since last summer and saw Dr Timmy Pichardo and has not re-established since then, she was seen at approximately 17:00 this evening (this is a late entry) and she had underwent lap appy and has a HARRIET drain present.. - Review of Systems Constitutional: No Fever, No Chills Respiratory: No Cough, No Short Of Breath Cardiac: No Chest Pain, No Edema, No Syncope Abdominal/Gastrointestinal: Abdominal Pain Skin: No Rash Neurological: No Dizziness, No Focal Weakness, No Sensory Changes All Other Systems: Reviewed and Negative Medications & Allergies Home Medications: Home Medication List No Reportable Medications [No Reported Medications] 11/24/18 [History Confirmed 11/24/18] Allergies/Adverse Reactions: Allergies Allergy/AdvReac Type Severity Reaction Status Date / Time peanut Allergy Severe Difficulty Verified 10/30/16 06:12 Breathing peanut oil Allergy Severe Difficulty Verified 10/30/16 06:12 Breathing codeine [Codeine] AdvReac Severe Headache Verified 10/30/16 06:12 hydrocodone [Hydrocodone] AdvReac Severe Headache Verified 10/30/16 06:12 bee pollen AdvReac Hives Verified 10/03/17 07:26 bee venom protein (honey bee) AdvReac Hives Verified 10/03/17 07:26 Honey AdvReac Hives Uncoded 10/03/17 07:26 - Past Medical History Past Medical History: Yes Neurological History: No Pertinent History ENT History: No Pertinent History Cardiac History: No Pertinent History Respiratory History: Pulmonary Embolism, Sleep Apnea Endocrine Medical History: No Pertinent History Musculoskelatal History: No Pertinent History GI Medical History: Ulcer History: No Pertinent History Pyscho-Social History: No Pertinent History, Depression Reproductive Disorders: No Pertinent History - Female History Are you now?: No - Past Surgical History Past Surgical History: Yes Neuro Surgical History: No Pertinent History Cardiac History: No Pertinent History Respiratory Surgery: No Pertinent History GI Surgical History: No Pertinent History Genitourinary Surgical Hx: No Pertinent History Musculskeletal Surgical Hx: No Pertinent History Female Surgical History: Section, Tubal Ligation, Other Other Surgical History: "bladder tie up" - Social History Smoking Status: Current every day smoker How long have you smoked: years Exposure to second hand smoke: Yes Alcohol: None Drug Use: none - Physical Exam Vital Signs: Vital Signs - 24 hr Temp Pulse Resp BP Pulse Ox 11/24/18 21:28 98 H 18 98 11/24/18 20:15 99.8 F 90 18 134/69 99 11/24/18 19:15 100 F 88 16 131/62 99 11/24/18 18:53 97 11/24/18 18:15 100.3 F 101 H 16 138/70 99 11/24/18 17:53 98 11/24/18 17:45 99.3 F 95 H 16 129/68 98 11/24/18 17:15 99.4 F 101 H 20 132/68 96 11/24/18 17:00 100.2 F 107 H 20 141/72 94 L 11/24/18 14:40 70 18 97 11/24/18 14:30 97.2 F 89 18 135/97 98 11/24/18 13:47 89 18 135/97 98 11/24/18 12:52 98.4 F 84 16 140/85 96 11/24/18 11:59 98.4 F 105 H 18 159/92 97 Oxygen-Last 24 hours O2 Percentage 2 Liters = 28% O2 Percentage 2 Liters = 28% O2 Percentage 2 Liters = 28% O2 Percentage 2 Liters = 28% O2 Percentage 2 Liters = 28% O2 Percentage 2 Liters = 28% O2 Percentage 2 Liters = 28% General Appearance: no apparent distress, alert Respiratory Exam: normal breath sounds, lungs clear, No respiratory distress Cardiovascular Exam: regular rate/rhythm, normal heart sounds, normal peripheral pulses Gastrointestinal/Abdomen Exam: other (dressings clean, dry, intact. HARRIET present with serous fluid) Extremity Exam: normal inspection, normal range of motion, pelvis stable Skin Exam: normal color, warm, dry, No rash Results - Labs Lab/Micro Results: Lab Results-Last 24 Hours 11/24/18 11/24/18 11/24/18 Range/Units 12:10 12:10 13:53 WBC 13.7 H (4.0-10.5) K/mm3 RBC 4.91 (4.1-5.4) M/mm3 Hgb 14.4 (12.0-16.0) gm/dl Hct 43.7 (35-47) % MCV 89.0 (78-100) fl MCH 29.3 (26-32) pg MCHC 33.0 (32-36) g/dl RDW 14.6 H (11.5-14.0) % Plt Count 288 (150-450) K/mm3 MPV 10.2 H (6-9.5) fl Gran % 84.9 H (36.0-66.0) % Eos # (Auto) 0.04 (0-0.5) Absolute Lymphs (auto) 0.95 L (1.0-4.6) Absolute Monos (auto) 1.07 (0.0-1.3) Lymphocytes % 6.9 L (24.0-44.0) % Monocytes % 7.8 (0.0-12.0) % Eosinophils % 0.3 (0.00-5.0) % Basophils % 0.1 (0.0-0.4) % Absolute Granulocytes 11.62 H (1.4-6.9) Basophils # 0.01 (0-0.4) Sodium 137 (137-145) mmol/L Potassium 3.9 (3.5-5.1) mmol/L Chloride 100 (98-107) mmol/L Carbon Dioxide 24 (22-30) mmol/L Anion Gap 16.9 H (5-15) MEQ/L BUN 10 (7-17) mg/dL Creatinine 0.97 (0.52-1.04) mg/dL Estimated GFR > 60.0 ML/MIN Glucose 123 H (74-106) mg/dL Calcium 10.0 (8.4-10.2) mg/dL Total Bilirubin 0.50 (0.2-1.3) mg/dL AST 21 (14-36) U/L ALT 24 (0-35) U/L Alkaline Phosphatase 126 (38-126) U/L Serum Total Protein 8.2 (6.3-8.2) g/dL Albumin 4.5 (3.5-5.0) g/dL Amylase 70 (30-110) U/L Lipase 50 (23-300) U/L Urine Color STRAW (YELLOW) Urine Appearance CLEAR (CLEAR) Urine pH 7.0 (5-6) Ur Specific [place] 1.017 (1.005-1.025) Urine Protein NEGATIVE (Negative) Urine Ketones NEGATIVE (NEGATIVE) Urine Blood NEGATIVE (0-5) Ck/ul Urine Nitrite NEGATIVE (NEGATIVE) Urine Bilirubin NEGATIVE (NEGATIVE) Urine Urobilinogen NEGATIVE (0-1) mg/dL Ur Leukocyte Esterase NEGATIVE (NEGATIVE) Urine WBC (Auto) NONE (0-5) /HPF Urine RBC (Auto) NONE (0-2) /HPF U Epithel Cells (Auto) RARE (FEW) /HPF Urine Bacteria (Auto) NONE (NEGATIVE) /HPF Urine Mucus (Auto) SLIGHT (NEGATIVE) /HPF Urine Culture Reflexed NO (NO) Urine Glucose NEGATIVE (NEGATIVE) mg/dL 11/24/18 Range/Units 15:20 WBC (4.0-10.5) K/mm3 RBC (4.1-5.4) M/mm3 Hgb (12.0-16.0) gm/dl Hct (35-47) % MCV (78-100) fl MCH (26-32) pg MCHC (32-36) g/dl RDW (11.5-14.0) % Plt Count (150-450) K/mm3 MPV (6-9.5) fl Gran % (36.0-66.0) % Eos # (Auto) (0-0.5) Absolute Lymphs (auto) (1.0-4.6) Absolute Monos (auto) (0.0-1.3) Lymphocytes % (24.0-44.0) % Monocytes % (0.0-12.0) % Eosinophils % (0.00-5.0) % Basophils % (0.0-0.4) % Absolute Granulocytes (1.4-6.9) Basophils # (0-0.4) Sodium (137-145) mmol/L Potassium (3.5-5.1) mmol/L Chloride (98-107) mmol/L Carbon Dioxide (22-30) mmol/L Anion Gap (5-15) MEQ/L BUN (7-17) mg/dL Creatinine (0.52-1.04) mg/dL Estimated GFR ML/MIN Glucose (74-106) mg/dL Calcium (8.4-10.2) mg/dL Total Bilirubin (0.2-1.3) mg/dL AST (14-36) U/L ALT (0-35) U/L Alkaline Phosphatase (38-126) U/L Serum Total Protein (6.3-8.2) g/dL Albumin (3.5-5.0) g/dL Amylase (30-110) U/L Lipase (23-300) U/L Urine Color STRAW (YELLOW) Urine Appearance CLEAR (CLEAR) Urine pH 6.0 (5-6) Ur Specific [place] 1.010 (1.005-1.025) Urine Protein NEGATIVE (Negative) Urine Ketones NEGATIVE (NEGATIVE) Urine Blood SMALL (0-5) Ck/ul Urine Nitrite NEGATIVE (NEGATIVE) Urine Bilirubin NEGATIVE (NEGATIVE) Urine Urobilinogen NEGATIVE (0-1) mg/dL Ur Leukocyte Esterase NEGATIVE (NEGATIVE) Urine WBC (Auto) NONE (0-5) /HPF Urine RBC (Auto) NONE (0-2) /HPF U Epithel Cells (Auto) NONE (FEW) /HPF Urine Bacteria (Auto) NONE (NEGATIVE) /HPF Urine Mucus (Auto) SLIGHT (NEGATIVE) /HPF Urine Culture Reflexed (NO) Urine Glucose NEGATIVE (NEGATIVE) mg/dL - Radiology Impressions Radiology Exams & Impressions: Radiology Procedures Category Date Time Status ABDOMEN AND PELVIS W CONTRAST [CT] Stat Exams 11/24/18 12:49 Completed - Other Procedures and Tests Respiratory Therapy 11/24/18 17:32 Smoking Cessation Education ONCE 11/24/18 17:45 Incentive Spirometry TID 11/24/18 17:51 Oxygen Nasal Cannula 2 lpm 11/24/18 17:52 Respiratory Therapy Assessment DAILY Assessment/Plan (1) Acute appendicitis Current Visit: Yes Status: Acute Qualifiers: Acute appendicitis type: unspecified acute appendicitis type Qualified Code (s): K35.80 - Unspecified acute appendicitis Assessment & Plan: continue zosyn and routine post-op care Code(s): K35.80 - UNSPECIFIED ACUTE APPENDICITIS (2) Hypertension Current Visit: Yes Status: Acute Assessment & Plan: stable off of meds at this time. will monitor post-operatively Code(s): I10 - ESSENTIAL (PRIMARY) HYPERTENSION
[2018-11-25] MEDS: Zosyn 3.375GM/100 Ml D5W 3.375 GM/100 ML IVPB IV SCH ×5 (01:15→23:56)
[2018-11-25] MEDS: D5W/0.45NS W/ 20mEq KCl 1000 ML 1,000 ML IV SCH ×2 (05:06→18:27)
[2018-11-25] MEDS: MORPHINE SULFATE 2 MG INJ IV PRN ×2 (05:06→21:00)
[2018-11-25] MEDS: ENOXAPARIN SODIUM SQ SCH (05:07)
[2018-11-25 05:29] LABS: Hematocrit 41.5 % (35-47); Hemoglobin 13.1 gm/dl (12.0-16.0); Mean Corpuscular Hemoglobin 28.7 pg (26-32); Mean Corpuscular Hgb Concent. 31.6 g/dl (32-36); Mean Platelet Volume 9.7 fl (6-9.5); Platelet Count 226 K/mm3 (150-450); Red Blood Count 4.56 M/mm3 (4.1-5.4); Red Cell Distribution Width 14.9 % (11.5-14.0); White Blood Count 12.4 K/mm3 (4.0-10.5)
[2018-11-25 05:42] LABS: ALBUMIN 3.6 g/dL (3.5-5.0); ALKALINE PHOSPHATASE 92 U/L (38-126); ANION GAP 13.5 MEQ/L (5-15); BLOOD UREA NITROGEN 9 mg/dL (7-17); CHLORIDE 104 mmol/L (98-107); Carbon Dioxide 23 mmol/L (22-30); Creatinine 1 0.95 mg/dL (0.52-1.04); Glucose 121 mg/dL (74-106); Potassium 4.3 mmol/L (3.5-5.1); SGOT/AST 17 U/L (14-36); SGPT/ALT 16 U/L (0-35); SODIUM 136 mmol/L (137-145); Total Protein 6.8 g/dL (6.3-8.2)
--- NOTE | 2018-11-25 07:45 | OP ---
SURGERY DATE/TIME: 11/24/2018 1459 PREOPERATIVE DIAGNOSIS: Acute appendicitis by CT scan. POSTOPERATIVE DIAGNOSIS: Acute perforated appendicitis. PROCEDURE: Laparoscopic appendectomy. SURGEON: Dr. Jose L Ruiz. ANESTHESIA: General. ESTIMATED BLOOD LOSS: Minimal. INDICATIONS: As noted above. Risks and benefits explained in detail but not limited to, consent obtained. DESCRIPTION OF PROCEDURE AND FINDINGS: The patient taken to the operating room. General anesthesia induced. Abdomen prepped and draped in usual sterile fashion. After official time out and no disagreement with planned procedure, a transverse incision made at supraumbilical area. Fascia grasped and pulled upwards. Veress needle inserted and tested with saline. Pneumoperitoneum accomplished insufflating from opening pressure of 0 to 15. A 5 mm bladeless port and camera were inserted without difficulty followed by a lower midline 5 mm port and a 12 mm right mid abdomen port. The patient noted to have gangrenous appendix that is perforated and there is a couple of stool balls hanging outside the appendix. The appendix is carefully mobilized upwards. Dissection at the base of the cecum and isolated with the EndoGIA stapler fired across the base of the appendix with the cecum. LigaSure device used to take down the mesoappendix staying directly on the border of the appendix. The appendix had been so rotten and perforated basically fell into here but the distal tip was able to be mobilized upwards. Residual mesoappendix taken down with LigaSure device elevating well away from the retroperitoneum. Both these pieces were placed in Pleatman sac and pulled free and passed off. Port is replaced. Copious amount of irrigation accomplished down in the pelvis in right lower quadrant irrigated until clear. Mesoappendix sealed. No signs of any active bleeding. The staple line on the cecum intact. No signs of any leakage. It was felt given the perforation it warranted placing the drain. HARRIET drain placed in the right lower quadrant and pulled out through the 5 mm port and secured with PDS suture and placed to bulb suction. Copious amount of irrigation irrigating clear. The 12 mm fascial defect closed with puncture closure device with #1 Vicryl. The wound is irrigated out. Pneumoperitoneum decompressed. Skin incision closed with 4-0 Vicryl. Steri-Strips and sterile dressing applied. 0.25% Marcaine local injected along the skin incision fascial defects. The patient tolerated the procedure well. There were no immediate complications. Again, this patient is seen for Dr. Chong Wang who is convention manager for our group today.
--- NOTE | 2018-11-25 08:52 | PCM.NOTE ---
Date and Time: 11/25/18 0846 Subjective Assessment: Had appendectomy last night. 1/10 pain at rest; 10/10 with coughing. Has been tolerating Sprite. Temp last night to 100.6. - Review of Systems Constitutional: Fever Abdominal/Gastrointestinal: Abdominal Pain Objective Exam General Appearance: mild distress (with coughing), alert Neurologic Exam: oriented x 3, cooperative Skin Exam: normal color, warm, dry, No rash Wound Assessment: Skin/Wound Assessment Wound/Incision Assessment Start: 11/24/18 14: 59 Text: Status: Active Freq: Q4H Protocol: Document 11/25/18 04:00 BW (Rec: 11/25/18 04:21 BW [id number]) Wound/Incision Assessment Anterior Abdomen Wound Assessment Shift Assessment Wound Type Incision Wound Stage Non Pressure Wound Dressing Status Dry & Intact Drainage Amount None Drainage Odor None/Absent Primary Dressing Non-Adherent Gauze Pads Comment puncture/incisions from lap milind. x 3, HARRIET drain to RLQ, dressing CDI Right Lower Abdomen Drain Type HARRIET drain Drainage Description Sanguineous Odor None/Absent Wound Photo Photo Taken No Ears, Nose, Throat Exam: moist mucous membranes Respiratory Exam: normal breath sounds, lungs clear, No crackles/rales, No rhonchi, No wheezing Cardiovascular Exam: regular rate/rhythm, normal heart sounds, No murmur Gastrointestinal/Abdomen Exam: soft, tenderness (RLQ), other (wound dressings c/ d/i), No normal bowel sounds (hypoactive but present), No distention, No mass, No guarding, No rebound Extremity Exam: normal inspection, No pedal edema, No swelling OBJECTIVE DATA Vital Signs: Vital Signs - 24 hr Temp Pulse Resp BP Pulse Ox 11/25/18 07:51 77 18 97 11/25/18 07:08 98.9 F 92 H 20 132/70 97 11/25/18 04:00 100.6 F 112 H 24 159/81 94 L 11/24/18 23:37 28 H 11/24/18 23:34 98.9 F 98 H 28 H 156/82 96 11/24/18 21:28 98 H 18 98 11/24/18 20:15 99.8 F 90 18 134/69 99 11/24/18 20:00 16 11/24/18 19:15 100 F 88 16 131/62 99 11/24/18 18:53 97 11/24/18 18:15 100.3 F 101 H 16 138/70 99 11/24/18 17:53 98 11/24/18 17:45 99.3 F 95 H 16 129/68 98 11/24/18 17:15 99.4 F 101 H 20 132/68 96 11/24/18 17:00 100.2 F 107 H 20 141/72 94 L 11/24/18 14:40 70 18 97 11/24/18 14:30 97.2 F 89 18 135/97 98 11/24/18 13:47 89 18 135/97 98 11/24/18 12:52 98.4 F 84 16 140/85 96 11/24/18 11:59 98.4 F 105 H 18 159/92 97 Oxygen-Last 24 hours O2 Percentage 2 Liters = 28% O2 Percentage 2 Liters = 28% O2 Percentage 2 Liters = 28% O2 Percentage 2 Liters = 28% O2 Percentage 2 Liters = 28% O2 Percentage 2 Liters = 28% O2 Percentage 2 Liters = 28% O2 Percentage 2 Liters = 28% O2 Percentage 2 Liters = 28% O2 Percentage 2 Liters = 28% O2 Percentage 2 Liters = 28% Pain Assessment - Last Documented Pain Intensity 5 Pain Scale Used 0-10 Pain Scale,FLACC Intake and Output: Intake & Output 11/22/18 11/23/18 11/24/18 11/25/18 11:59 11:59 11:59 11:59 Intake Total 2609 Output Total 1030 Balance 1579 Weight 68.039 kg 82.2 kg Lab Results: Lab Results-Last 24 Hours 11/24/18 11/24/18 11/24/18 Range/Units 12:10 12:10 13:53 WBC 13.7 H (4.0-10.5) K/mm3 RBC 4.91 (4.1-5.4) M/mm3 Hgb 14.4 (12.0-16.0) gm/dl Hct 43.7 (35-47) % MCV 89.0 (78-100) fl MCH 29.3 (26-32) pg MCHC 33.0 (32-36) g/dl RDW 14.6 H (11.5-14.0) % Plt Count 288 (150-450) K/mm3 MPV 10.2 H (6-9.5) fl Gran % 84.9 H (36.0-66.0) % Eos # (Auto) 0.04 (0-0.5) Absolute Lymphs (auto) 0.95 L (1.0-4.6) Absolute Monos (auto) 1.07 (0.0-1.3) Lymphocytes % 6.9 L (24.0-44.0) % Monocytes % 7.8 (0.0-12.0) % Eosinophils % 0.3 (0.00-5.0) % Basophils % 0.1 (0.0-0.4) % Absolute Granulocytes 11.62 H (1.4-6.9) Basophils # 0.01 (0-0.4) Sodium 137 (137-145) mmol/L Potassium 3.9 (3.5-5.1) mmol/L Chloride 100 (98-107) mmol/L Carbon Dioxide 24 (22-30) mmol/L Anion Gap 16.9 H (5-15) MEQ/L BUN 10 (7-17) mg/dL Creatinine 0.97 (0.52-1.04) mg/dL Estimated GFR > 60.0 ML/MIN Glucose 123 H (74-106) mg/dL Calcium 10.0 (8.4-10.2) mg/dL Total Bilirubin 0.50 (0.2-1.3) mg/dL AST 21 (14-36) U/L ALT 24 (0-35) U/L Alkaline Phosphatase 126 (38-126) U/L Serum Total Protein 8.2 (6.3-8.2) g/dL Albumin 4.5 (3.5-5.0) g/dL Amylase 70 (30-110) U/L Lipase 50 (23-300) U/L Urine Color STRAW (YELLOW) Urine Appearance CLEAR (CLEAR) Urine pH 7.0 (5-6) Ur Specific [place] 1.017 (1.005-1.025) Urine Protein NEGATIVE (Negative) Urine Ketones NEGATIVE (NEGATIVE) Urine Blood NEGATIVE (0-5) Ck/ul Urine Nitrite NEGATIVE (NEGATIVE) Urine Bilirubin NEGATIVE (NEGATIVE) Urine Urobilinogen NEGATIVE (0-1) mg/dL Ur Leukocyte Esterase NEGATIVE (NEGATIVE) Urine WBC (Auto) NONE (0-5) /HPF Urine RBC (Auto) NONE (0-2) /HPF U Epithel Cells (Auto) RARE (FEW) /HPF Urine Bacteria (Auto) NONE (NEGATIVE) /HPF Urine Mucus (Auto) SLIGHT (NEGATIVE) /HPF Urine Culture Reflexed NO (NO) Urine Glucose NEGATIVE (NEGATIVE) mg/dL 11/24/18 11/25/18 11/25/18 Range/Units 15:20 05:15 05:15 WBC 12.4 H (4.0-10.5) K/mm3 RBC 4.56 (4.1-5.4) M/mm3 Hgb 13.1 (12.0-16.0) gm/dl Hct 41.5 (35-47) % MCV 91.0 (78-100) fl MCH 28.7 (26-32) pg MCHC 31.6 L (32-36) g/dl RDW 14.9 H (11.5-14.0) % Plt Count 226 (150-450) K/mm3 MPV 9.7 H (6-9.5) fl Gran % (36.0-66.0) % Eos # (Auto) (0-0.5) Absolute Lymphs (auto) (1.0-4.6) Absolute Monos (auto) (0.0-1.3) Lymphocytes % (24.0-44.0) % Monocytes % (0.0-12.0) % Eosinophils % (0.00-5.0) % Basophils % (0.0-0.4) % Absolute Granulocytes (1.4-6.9) Basophils # (0-0.4) Sodium 136 L (137-145) mmol/L Potassium 4.3 (3.5-5.1) mmol/L Chloride 104 (98-107) mmol/L Carbon Dioxide 23 (22-30) mmol/L Anion Gap 13.5 (5-15) MEQ/L BUN 9 (7-17) mg/dL Creatinine 0.95 (0.52-1.04) mg/dL Estimated GFR > 60.0 ML/MIN Glucose 121 H (74-106) mg/dL Calcium 9.0 (8.4-10.2) mg/dL Total Bilirubin 0.90 (0.2-1.3) mg/dL AST 17 (14-36) U/L ALT 16 (0-35) U/L Alkaline Phosphatase 92 (38-126) U/L Serum Total Protein 6.8 (6.3-8.2) g/dL Albumin 3.6 (3.5-5.0) g/dL Amylase (30-110) U/L Lipase (23-300) U/L Urine Color STRAW (YELLOW) Urine Appearance CLEAR (CLEAR) Urine pH 6.0 (5-6) Ur Specific [place] 1.010 (1.005-1.025) Urine Protein NEGATIVE (Negative) Urine Ketones NEGATIVE (NEGATIVE) Urine Blood SMALL (0-5) Ck/ul Urine Nitrite NEGATIVE (NEGATIVE) Urine Bilirubin NEGATIVE (NEGATIVE) Urine Urobilinogen NEGATIVE (0-1) mg/dL Ur Leukocyte Esterase NEGATIVE (NEGATIVE) Urine WBC (Auto) NONE (0-5) /HPF Urine RBC (Auto) NONE (0-2) /HPF U Epithel Cells (Auto) NONE (FEW) /HPF Urine Bacteria (Auto) NONE (NEGATIVE) /HPF Urine Mucus (Auto) SLIGHT (NEGATIVE) /HPF Urine Culture Reflexed (NO) Urine Glucose NEGATIVE (NEGATIVE) mg/dL Radiology Exams: Radiology Procedures Category Date Time Status ABDOMEN AND PELVIS W CONTRAST [CT] Stat Exams 11/24/18 12:49 Completed Assessment/Plan (1) S/P appendectomy Current Visit: Yes Status: Acute Assessment & Plan: POD #1 - had fever this morning. Bettina po well and good bowel sounds, although she hasn't passed gas yet. Advised I would like to keep her at least 1 more day on the IV zosyn. Code(s): Z90.49 - ACQUIRED ABSENCE OF OTHER SPECIFIED PARTS OF DIGESTIVE TRACT (2) Lung nodule Current Visit: Yes Status: Acute Assessment & Plan: Will need recheck on CT in 1 year. Code(s): R91.1 - SOLITARY PULMONARY NODULE (3) Hypertension Current Visit: Yes Status: Chronic Qualifiers: Hypertension type: essential hypertension Qualified Code(s): I10 - Essential (primary) hypertension Assessment & Plan: Watching for now. Has been off her meds. Code(s): I10 - ESSENTIAL (PRIMARY) HYPERTENSION
[2018-11-25] MEDS: NORCO 5/325 MG PO PRN ×3 (09:13→22:14)
[2018-11-26] MEDS: NORCO 5/325 MG PO PRN ×3 (02:06→10:54)
[2018-11-26 02:07] LABS: Hematocrit 38.2 % (35-47); Hemoglobin 12.2 gm/dl (12.0-16.0); Mean Cell Volume 91.4 fl (78-100); Mean Corpuscular Hemoglobin 29.2 pg (26-32); Mean Corpuscular Hgb Concent. 31.9 g/dl (32-36); Mean Platelet Volume 9.7 fl (6-9.5); Platelet Count 212 K/mm3 (150-450); Red Blood Count 4.18 M/mm3 (4.1-5.4); Red Cell Distribution Width 14.7 % (11.5-14.0); White Blood Count 9.3 K/mm3 (4.0-10.5)
[2018-11-26] MEDS: D5W/0.45NS W/ 20mEq KCl 1000 ML 1,000 ML IV SCH (04:14)
[2018-11-26] MEDS: Zosyn 3.375GM/100 Ml D5W 3.375 GM/100 ML IVPB IV SCH (05:51)
[2018-11-26] MEDS: ENOXAPARIN SODIUM SQ SCH (05:55)
[2018-11-26 07:43] VITALS: BP 161/74
[2018-11-26 08:34] VITALS: PULSE 81; O2SAT 91
--- NOTE | 2018-11-26 09:32 | PCM.DS ---
Discharge Summary Date of Admission: 11/24/18 14:57 Admitting Physician: GLENYS REYES Consults: Consults on Case 11/24/18 18:01 Consult Surgery ROUTINE Primary Care Provider: GLENYS REYES Allergies Allergies peanut Allergy (Severe, Verified 10/30/16 06:12) Difficulty Breathing peanut oil Allergy (Severe, Verified 10/30/16 06:12) Difficulty Breathing codeine [Codeine] Adverse Reaction (Severe, Verified 10/30/16 06:12) Headache hydrocodone [Hydrocodone] Adverse Reaction (Severe, Verified 10/30/16 06:12) Headache bee pollen Adverse Reaction (Verified 10/03/17 07:26) Hives bee venom protein (honey bee) Adverse Reaction (Verified 10/03/17 07:26) Hives Honey Adverse Reaction (Uncoded 10/03/17 07:26) [facility] Summary - Hospital Course Hospital Course: patient was admitted with appendicitis, taken to surgery by Dr Rubio. has scant drainage from HARRIET, wbc is normalized and she is ambulating and tolerating po postop. she has not been on any medication since she saw Dr Pichardo a year ago. hx of htn, overlal doing well at this time. bp has been high recently, will restart low dose lucho inhibitor on discharge and have her followup - Vitals & Intake/Output Vital Signs: Vital Signs Temperature 98.5 F 11/26/18 07:42 Pulse Rate 81 11/26/18 08:30 Respiratory Rate 18 11/26/18 08:30 Blood Pressure 161/74 11/26/18 07:42 O2 Sat by Pulse Oximetry 91 L 11/26/18 08:30 Oxygen-Last Documented O2 Percentage 2 Liters = 28% Intake & Output: Intake & Output 11/23/18 11/24/18 11/25/18 11/26/18 11:59 11:59 11:59 11:59 Intake Total 2969 3832 Output Total 1330 2365 Balance 1639 1467 Weight 68.039 kg 82.2 kg - Lab Result Diagrams: 11/26/18 02:03 11/25/18 05:15 Lab Results-Last 24 Hrs: Lab Results-Last 24 Hours 11/25/18 11/25/18 11/26/18 Range/Units 20:23 23:05 02:03 WBC 9.3 (4.0-10.5) K/mm3 RBC 4.18 (4.1-5.4) M/mm3 Hgb 12.2 (12.0-16.0) gm/dl Hct 38.2 (35-47) % MCV 91.4 (78-100) fl MCH 29.2 (26-32) pg MCHC 31.9 L (32-36) g/dl RDW 14.7 H (11.5-14.0) % Plt Count 212 (150-450) K/mm3 MPV 9.7 H (6-9.5) fl Troponin I < 0.012 < 0.012 (0.000-0.034) ng/mL 11/26/18 Range/Units 02:03 WBC (4.0-10.5) K/mm3 RBC (4.1-5.4) M/mm3 Hgb (12.0-16.0) gm/dl Hct (35-47) % MCV (78-100) fl MCH (26-32) pg MCHC (32-36) g/dl RDW (11.5-14.0) % Plt Count (150-450) K/mm3 MPV (6-9.5) fl Troponin I < 0.012 (0.000-0.034) ng/mL Micro Results-Entire Visit: Microbiology 11/24/18 15:20 Urine Culture - Preliminary Catherized NO GROWTH TO DATE - Radiology Exams Ordered Rad Exams-Entire Visit: Radiology Procedures Category Date Time Status ABDOMEN AND PELVIS W CONTRAST [CT] Stat Exams 11/24/18 12:49 Completed - Procedures and Test Procedures and Tests throughout Hospitalization: Therapy Orders & Screens 11/24/18 17:32 Smoking Cessation Education ONCE Comment: Diagnosis: tenzin appcarole Smoking Status: Current every day smoker How long have you smoked: years Have you smoked in the past 12 months: Yes Approximately how many cigarettes per day: 20 Do you dip or chew tobacco: No 11/24/18 17:45 Incentive Spirometry TID Comment: IS/breaths 1 hour while awake Diagnosis: lap appy 11/24/18 17:51 Oxygen Nasal Cannula 2 lpm Comment: Diagnosis: lap appy 11/24/18 17:52 Respiratory Therapy Assessment DAILY Comment: Diagnosis: lap appy 11/25/18 19:37 EKG STAT Comment: Diagnosis: lap appy Discharge Exam General Appearance: no apparent distress, alert Respiratory Exam: normal breath sounds, lungs clear, No respiratory distress Cardiovascular Exam: regular rate/rhythm, normal heart sounds Gastrointestinal/Abdomen Exam: soft, other (HARRIET with scant serous fluid, port sites well approximated, clean, dry and no redness. abdomen soft), No tenderness , No mass Extremity Exam: normal inspection, normal range of motion Skin Exam: normal color, warm, dry Wound Assessment: Skin/Wound Assessment Wound/Incision Assessment Start: 11/24/18 14: 59 Text: Status: Active Freq: Q4H Protocol: Document 11/26/18 08:00 SHARRON (Rec: 11/26/18 08:46 SHARRON [id number]) Wound/Incision Assessment Anterior Abdomen Wound Assessment Shift Assessment Wound Type 2 PUNCTURE SITE Wound Stage Non Pressure Wound Drainage Amount None General Appearance Open to air Surrounding Tissue Kincaid Comment 2 PUNCTURE SITES NOTED, HARRIET IN PLACE Right Lower Abdomen Drain Type HARRIET drain Drainage Description Serosanguineous Odor None/Absent Wound Photo Photo Taken No Final Diagnosis/Problem List - Final Discharge Diagnosis/Problem (1) Acute appendicitis Current Visit: Yes Status: Acute Code(s): K35.80 - UNSPECIFIED ACUTE APPENDICITIS (2) Hypertension Current Visit: Yes Status: Chronic Code(s): I10 - ESSENTIAL (PRIMARY) HYPERTENSION - Discharge Disposition: Home, Self-Care Condition: Good Prescriptions: New Lisinopril 10 mg [Zestril 10 MG] 10 mg PO DAILY #30 tablet Additional Instructions: take augmentin and norco as written on paper scripts on chart from Dr Rubio. start lisinopril 10mg daily, f/u in 1-2 weeks Follow up with: GORDY RUBIO [COURTESY STAFF] - 1 Week GLENYS REYES MD [Primary Care Provider] - Call for Appointment (2 weeks)
== END 2018-11-26 11:50 | disposition home or self-care (01) ==
LOC: ED 11:55 → MED SURG 14:57
PROVIDERS: ADMIT Family Medicine; ATTEND Family Medicine
DX: K35.80 Unspecified acute appendicitis (principal); I10 Essential (primary) hypertension; R91.1 Solitary pulmonary nodule
CPT/HCPCS: 36000; 36415; 74177; 80053; 81001; 82150; 83690; 84484; 85025; 85027; 87086; 93005; 93268; 94760; 94762; 96360; 96374; 96375; 99140; 99285; J0330; J0690; J1650; J2250; J2270; J2405; J2543; J2704; J3010; A9270-GY; G0378

== ENCOUNTER 2020-11-22 21:19 | Emergency (ER) | payer OTHER ==
[2020-11-22] MEDS ORDERED: BABY ASPIRIN 81 MG CHEW PO ONE (21:53)
[2020-11-22] MEDS ORDERED: Sodium Chloride 0.9% 1000 ML 1,000 ML IV STA (21:53)
[2020-11-22] MEDS ORDERED: Sodium Chloride 0.9% 1000 ML 1,000 ML ONE ×2 (21:56→21:59)
--- NOTE | 2020-11-22 22:03 | ERPHSYRPT ---
- History of Present Illness Time Seen by Provider: 11/22/20 21:21 Source: patient, family Exam Limitations: no limitations Patient Subjective Stated Complaint: Patients symptoms started 1830 today, complaining of vomiting, hot and cold flashes, shortness of breath, gas pain, and diarrhea Triage Nursing Assessment: patient presents to ER with cold chills and shortness of breath. Does not appear to be in respiratory distress at this time. Skin warm pink dry. No vomiting at this time. Physician History: 60 years old female with history of hypertension, PE not on any anticoagulants presented in the ER with sudden onset funny feeling while she was standing at her friend's house almost 3 hours ago. Patient reports she started to feel funny like hot flashes followed by cold sweats with sudden onset nausea and multiple episodes of nonprojectile, nonbilious vomiting following that. She denies any abdominal pain but does have some bloating sensation and couple of episodes of loose watery stool. While having that she was feeling dizzy and lightheaded as well but weakness all over without any focal numbness tingling or weakness. Her feeling of dizziness is improved now. Her nausea is better but still feeling weak all over. She also has some increasing shortness of breath since this started. Denies any sick contact, fever or chills. Timing/Duration: hour(s) (3), constant, sudden, improved Severity: moderate Modifying Factors: Improves With: nothing Associated Symptoms: nausea, vomiting, shortness of breath, cough, weakness, No abdominal pain, No chest pain Allergies/Adverse Reactions: peanut Allergy (Severe, Verified 11/22/20 21:44) Difficulty Breathing peanut oil Allergy (Severe, Verified 11/22/20 21:44) Difficulty Breathing codeine [Codeine] Adverse Reaction (Severe, Verified 11/22/20 21:44) Headache hydrocodone [Hydrocodone] Adverse Reaction (Severe, Verified 11/22/20 21:44) Headache bee pollen Adverse Reaction (Verified 11/22/20 21:44) Hives bee venom protein (honey bee) Adverse Reaction (Verified 11/22/20 21:44) Hives Honey Adverse Reaction (Uncoded 11/22/20 21:44) Hives Hx Tetanus, Diphtheria Vaccination/Date Given: Yes Hx Influenza Vaccination/Date Given: Yes Hx Pneumococcal Vaccination/Date Given: No Travel Risk - International Travel Have you traveled outside of the country in past 3 weeks: No - Coronavirus Screening Are you exhibiting any of the following symptoms?: Yes Symptoms: Shortness of Breath, Vomiting/Diarrhea, Headaches/Body Aches/Fatigue Close contact with a COVID-19 positive Pt in past 14-21 Days: No - Vaccine Status Have you recieved a Covid-19 vaccination: Yes Windows Software 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 - Vaccination Dates Date of 2cond Vaccination (if applicable): 10/06 - Review of Systems Constitutional: Fatigue, Weakness Eyes: No Symptoms Ears, Nose, & Throat: No Symptoms Respiratory: Dyspnea Cardiac: Palpitations Abdominal/Gastrointestinal: Nausea, Vomiting, Diarrhea, No Abdominal Pain Genitourinary Symptoms: No Symptoms Musculoskeletal: No Symptoms Skin: No Symptoms Neurological: Dizziness, No Focal Weakness Psychological: No Symptoms Endocrine: No Symptoms Hematologic/Lymphatic: No Symptoms Immunological/Allergic: No Symptoms - Past Medical History Pertinent Past Medical History: Yes Neurological History: No Pertinent History ENT History: No Pertinent History Cardiac History: No Pertinent History Respiratory History: Pulmonary Embolism, Sleep Apnea Endocrine Medical History: No Pertinent History Musculoskeletal History: No Pertinent History GI Medical History: Ulcer History: No Pertinent History Psycho-Social History: No Pertinent History, Depression Female Reproductive Disorders: No Pertinent History - Past Surgical History Past Surgical History: Yes Neuro Surgical History: No Pertinent History Cardiac: No Pertinent History Respiratory: No Pertinent History Gastrointestinal: No Pertinent History Genitourinary: No Pertinent History Musculoskeletal: No Pertinent History Female Surgical History: Section, Tubal Ligation, Other Other Surgical History: "bladder tie up" - Social History Smoking Status: Current every day smoker How long have you smoked: years Exposure to second hand smoke: Yes Alcohol Use: few times a week Drug Use: none Patient Lives Alone: No - Female History Hx Now: No - Nursing Vital Signs Nursing Vital Signs: Initial Vital Signs Temperature 98.1 F 11/22/20 21:25 Pulse Rate 121 H 11/22/20 21:25 Respiratory Rate 21 11/22/20 21:25 Blood Pressure 179/99 11/22/20 21:25 O2 Sat by Pulse Oximetry 98 11/22/20 21:25 Pain Scale Pain Intensity 4 - Physical Exam General Appearance: no apparent distress, alert, anxiety Eye Exam: PERRL/EOMI, eyes nml inspection Ears, Nose, Throat Exam: normal ENT inspection, TMs normal, pharynx normal Neck Exam: normal inspection, non-tender, supple, full range of motion Respiratory Exam: normal breath sounds, lungs clear Cardiovascular Exam: normal heart sounds, tachycardia Gastrointestinal/Abdomen Exam: soft, normal bowel sounds, No tenderness Back Exam: normal inspection, normal range of motion Extremity Exam: normal inspection, normal range of motion, pelvis stable Neurologic Exam: alert, oriented x 3, cooperative, biochemist II-XII nml as tested, nml cerebellar function, sensation nml, No motor deficits, No sensory deficit Skin Exam: normal color SpO2 Interpretation: normal SpO2: 98 O2 Delivery: Room Air - Course EKG Interpreted by Me: RATE ([id number]), Sinus Tach, NORMAL AXIS, NORMAL INTERVALS, Non-specific ST Changes (EKG time 2238. Right 100. Sinus rhythm. Nonspecific ST changes. Normal axis. Normal intervals.) Ordered Tests: Active Orders 24 hr Category Date Time Status Business Systems Manager STAT Care 11/22/20 21:55 Active EKG-ER Only STAT Care 11/22/20 21:53 Active IV Insertion STAT Care 11/22/20 21:53 Active Orthostatic Vital Signs STAT Care 11/22/20 21:57 Active CHEST WITH CONTRAST [CT] Stat Exams 11/22/20 23:04 Taken OBSTR/ACUTE ABDOMEN SERIES Stat Exams 11/22/20 22:28 Taken CBC W DIFF Stat Lab 11/22/20 22:10 Completed CK-Creatinine Phosphokinase Stat Lab 11/22/20 22:10 Completed CMP Stat Lab 11/22/20 22:10 Completed CULTURE,URINE Stat Lab 11/22/20 22:30 Received D-DIMER QUANTITATIVE Stat Lab 11/22/20 22:10 Completed LIPASE Stat Lab 11/22/20 22:30 Completed NT PRO BNP Stat Lab 11/22/20 22:10 Completed POCT GLUCOSE Stat Lab 11/22/20 21:48 Completed TROPONIN Q3H Lab 11/22/20 22:10 Completed TROPONIN Q3H Lab 11/23/20 01:07 Completed TROPONIN Q3H Lab 11/23/20 04:15 Ordered TROPONIN Q3H Lab 11/23/20 07:15 Ordered TROPONIN Q3H Lab 11/23/20 10:15 Ordered UA W/RFX UR CULTURE Stat Lab 11/22/20 22:30 Completed Medication Summary Discontinued Medications Generic Name Dose Route Start Last Admin Trade Name Freq PRN Reason Stop Dose Admin Aspirin 324 mg 11/22/20 21:53 11/22/20 21:57 Baby Aspirin 81 Mg Chew PO 11/22/20 21:54 324 mg STAT ONE Administration Sodium Chloride 1,000 mls @ 999 mls/hr 11/22/20 21:53 11/22/20 21:58 Sodium Chloride 0.9% 1000 Ml IV 11/22/20 22:53 999 mls/hr .Q1H1M STA Administration Sodium Chloride Confirm 11/22/20 21:56 Sodium Chloride 0.9% 1000 Ml Administered 11/22/20 21:57 Dose 1,000 mls @ ud .ROUTE .STK-MED ONE Sodium Chloride Confirm 11/22/20 21:59 Sodium Chloride 0.9% 1000 Ml Administered 11/22/20 22:00 Dose 1,000 mls @ ud .ROUTE .STK-MED ONE Ceftriaxone Sodium/Dextrose 1 g in 50 mls @ 100 mls/hr 11/22/20 23:16 11/22/20 23:28 Rocephin 1 Gm-D5w 50 Ml Bag IV 11/22/20 23:45 100 mls/hr STAT STA 100 mls/hr Administration Ceftriaxone Sodium/Dextrose Confirm 11/22/20 23:26 Rocephin 1 Gm-D5w 50 Ml Bag Administered 11/22/20 23:27 Dose 1 g in 50 mls @ ud IV .STK-MED ONE Lab/Rad Data: Laboratory Result Diagrams 11/22/20 22:10 11/22/20 22:10 Laboratory Results 11/23/20 11/22/20 11/22/20 Range/Units 01:07 22:30 22:30 WBC (4.0-10.5) K/mm3 RBC (4.1-5.4) M/mm3 Hgb (12.0-16.0) gm/dl Hct (35-47) % MCV (78-100) fl MCH (26-32) pg MCHC (32-36) g/dl RDW (11.5-14.0) % Plt Count (150-450) K/mm3 MPV (7.5-11.0) fl Gran % (36.0-66.0) % Eos # (Auto) (0-0.5) Absolute Lymphs (auto) (1.0-4.6) Absolute Monos (auto) (0.0-1.3) Lymphocytes % (24.0-44.0) % Monocytes % (0.0-12.0) % Eosinophils % (0.00-5.0) % Basophils % (0.0-0.4) % Absolute Granulocytes (1.4-6.9) Basophils # (0-0.4) D-Dimer (215-500) ng/mL Sodium (137-145) mmol/L Potassium (3.5-5.1) mmol/L Chloride (98-107) mmol/L Carbon Dioxide (22-30) mmol/L Anion Gap (5-15) MEQ/L BUN (7-17) mg/dL Creatinine (0.52-1.04) mg/dL Estimated GFR ML/MIN Glucose (74-106) mg/dL POC Glucometer (74 to 106) mg/dL Calcium (8.4-10.2) mg/dL Total Bilirubin (0.2-1.3) mg/dL AST (14-36) U/L ALT (0-35) U/L Alkaline Phosphatase (38-126) U/L Creatine Kinase (30-135) U/L Troponin I 0.317 H* (0.000-0.034) ng/mL NT-Pro-B Natriuret Pep (0-900) pg/mL Serum Total Protein (6.3-8.2) g/dL Albumin (3.5-5.0) g/dL Lipase 137 (23-300) U/L Urine Color YELLOW (YELLOW) Urine Appearance CLOUDY (CLEAR) Urine pH 7.0 (5-6) Ur Specific Garfield 1.008 (1.005-1.025) Urine Protein 30 (Negative) Urine Ketones NEGATIVE (NEGATIVE) Urine Blood SMALL (0-5) Ck/ul Urine Nitrite NEGATIVE (NEGATIVE) Urine Bilirubin NEGATIVE (NEGATIVE) Urine Urobilinogen NEGATIVE (0-1) mg/dL Ur Leukocyte Esterase MODERATE (NEGATIVE) Urine WBC (Auto) 26-50 (0-5) /HPF Urine RBC (Auto) 3-5 (0-2) /HPF U Hyaline Cast (Auto) 6-10 (0-2) /LPF U Epithel Cells (Auto) MODERATE (FEW) /HPF Urine Bacteria (Auto) NONE (NEGATIVE) /HPF Urine Mucus (Auto) SLIGHT (NEGATIVE) /HPF Urine Culture Reflexed YES (NO) Urine Glucose NEGATIVE (NEGATIVE) mg/dL 11/22/20 11/22/20 11/22/20 Range/Units 22:10 22:10 22:10 WBC (4.0-10.5) K/mm3 RBC (4.1-5.4) M/mm3 Hgb (12.0-16.0) gm/dl Hct (35-47) % MCV (78-100) fl MCH (26-32) pg MCHC (32-36) g/dl RDW (11.5-14.0) % Plt Count (150-450) K/mm3 MPV (7.5-11.0) fl Gran % (36.0-66.0) % Eos # (Auto) (0-0.5) Absolute Lymphs (auto) (1.0-4.6) Absolute Monos (auto) (0.0-1.3) Lymphocytes % (24.0-44.0) % Monocytes % (0.0-12.0) % Eosinophils % (0.00-5.0) % Basophils % (0.0-0.4) % Absolute Granulocytes (1.4-6.9) Basophils # (0-0.4) D-Dimer 1494 H* (215-500) ng/mL Sodium 138 (137-145) mmol/L Potassium 4.3 (3.5-5.1) mmol/L Chloride 105 (98-107) mmol/L Carbon Dioxide 24 (22-30) mmol/L Anion Gap 14.1 (5-15) MEQ/L BUN 18 H (7-17) mg/dL Creatinine 1.36 H (0.52-1.04) mg/dL Estimated GFR 42.2 ML/MIN Glucose 104 (74-106) mg/dL POC Glucometer (74 to 106) mg/dL Calcium 10.0 (8.4-10.2) mg/dL Total Bilirubin 0.30 (0.2-1.3) mg/dL AST 27 (14-36) U/L ALT 23 (0-35) U/L Alkaline Phosphatase 95 (38-126) U/L Creatine Kinase 61 (30-135) U/L Troponin I 0.141 H* (0.000-0.034) ng/mL NT-Pro-B Natriuret Pep 127 (0-900) pg/mL Serum Total Protein 7.2 (6.3-8.2) g/dL Albumin 4.2 (3.5-5.0) g/dL Lipase (23-300) U/L Urine Color (YELLOW) Urine Appearance (CLEAR) Urine pH (5-6) Ur Specific Garfield (1.005-1.025) Urine Protein (Negative) Urine Ketones (NEGATIVE) Urine Blood (0-5) Ck/ul Urine Nitrite (NEGATIVE) Urine Bilirubin (NEGATIVE) Urine Urobilinogen (0-1) mg/dL Ur Leukocyte Esterase (NEGATIVE) Urine WBC (Auto) (0-5) /HPF Urine RBC (Auto) (0-2) /HPF U Hyaline Cast (Auto) (0-2) /LPF U Epithel Cells (Auto) (FEW) /HPF Urine Bacteria (Auto) (NEGATIVE) /HPF Urine Mucus (Auto) (NEGATIVE) /HPF Urine Culture Reflexed (NO) Urine Glucose (NEGATIVE) mg/dL 11/22/20 11/22/20 Range/Units 22:10 21:48 WBC 17.0 H (4.0-10.5) K/mm3 RBC 4.70 (4.1-5.4) M/mm3 Hgb 13.2 (12.0-16.0) gm/dl Hct 42.0 (35-47) % MCV 89.4 (78-100) fl MCH 28.1 (26-32) pg MCHC 31.4 L (32-36) g/dl RDW 14.9 H (11.5-14.0) % Plt Count 283 (150-450) K/mm3 MPV 9.9 (7.5-11.0) fl Gran % 87.0 H (36.0-66.0) % Eos # (Auto) 0.02 (0-0.5) Absolute Lymphs (auto) 1.35 (1.0-4.6) Absolute Monos (auto) 0.84 (0.0-1.3) Lymphocytes % 7.9 L (24.0-44.0) % Monocytes % 4.9 (0.0-12.0) % Eosinophils % 0.1 (0.00-5.0) % Basophils % 0.1 (0.0-0.4) % Absolute Granulocytes 14.79 H (1.4-6.9) Basophils # 0.02 (0-0.4) D-Dimer (215-500) ng/mL Sodium (137-145) mmol/L Potassium (3.5-5.1) mmol/L Chloride (98-107) mmol/L Carbon Dioxide (22-30) mmol/L Anion Gap (5-15) MEQ/L BUN (7-17) mg/dL Creatinine (0.52-1.04) mg/dL Estimated GFR ML/MIN Glucose (74-106) mg/dL POC Glucometer 106 (74 to 106) mg/dL Calcium (8.4-10.2) mg/dL Total Bilirubin (0.2-1.3) mg/dL AST (14-36) U/L ALT (0-35) U/L Alkaline Phosphatase (38-126) U/L Creatine Kinase (30-135) U/L Troponin I (0.000-0.034) ng/mL NT-Pro-B Natriuret Pep (0-900) pg/mL Serum Total Protein (6.3-8.2) g/dL Albumin (3.5-5.0) g/dL Lipase (23-300) U/L Urine Color (YELLOW) Urine Appearance (CLEAR) Urine pH (5-6) Ur Specific Garfield (1.005-1.025) Urine Protein (Negative) Urine Ketones (NEGATIVE) Urine Blood (0-5) Ck/ul Urine Nitrite (NEGATIVE) Urine Bilirubin (NEGATIVE) Urine Urobilinogen (0-1) mg/dL Ur Leukocyte Esterase (NEGATIVE) Urine WBC (Auto) (0-5) /HPF Urine RBC (Auto) (0-2) /HPF U Hyaline Cast (Auto) (0-2) /LPF U Epithel Cells (Auto) (FEW) /HPF Urine Bacteria (Auto) (NEGATIVE) /HPF Urine Mucus (Auto) (NEGATIVE) /HPF Urine Culture Reflexed (NO) Urine Glucose (NEGATIVE) mg/dL - Progress Progress: improved Progress Note: 11/22/20 23:04 60 years old is evaluated for sudden onset nausea vomiting diarrhea with some lightheadedness. Patient was tachycardic on presentation, given fluid bolus. She does not have any chest pain at all on presentation. EKG showed some questionable changes in the inferior lead but no definite of elevation meeting criteria for STEMI on initial EKG and I have repeated EKG which is pretty much the same. She has a D-dimer of 1494 and troponin of 1.14. I have faxed both EKGs to [facility] and Dr. Huerta which has seen, I agree that this does not seem to be ST elevation MN so I can go ahead and scan her chest for PE. She also has a white count of 17 K with UTI. I would give her a dose of antibiotic as well 11/23/20 02:00 She has negative CTA chest for pulmonary embolism. No acute finding in the CT abdomen pelvis. Second troponins are elevated 0.317. She still does not have any chest pain on reevaluation. Her heart rate is improved and is currently in the 80s. I believe patient has NSTEMI and needs to go to place with cardiology services. I have discussed with Dr. Mitchell at [facility], reviewed history, work-up and current plan of care, recommended heparin bolus and holding off on a drip until patient is arrived at [place]. Plan discussed with patient who understand and agrees with it. Discussed with Dr.: Other (Dr. Tucker [facility]) Counseled pt/family regarding: lab results, diagnosis, rad results - Departure Departure Disposition: Transfer Clinical Impression: NSTEMI (non-ST elevated myocardial infarction), Gastroenteritis, Acute kidney injury superimposed on CKD Condition: Stable Critical Care Time: Yes Critical Care Time(excluding separately billable procedures): Critical 30-74 mins Referrals: GLENYS REYES MD [Primary Care Provider] -
[2020-11-22 22:17] LABS: Absolute Neutrophil Ct (ANC) 14.79 (1.4-6.9); BASOPHIL % 0.1 % (0.0-0.4); Basophil (Absolute #) 0.02 (0-0.4); Eosinophil % 0.1 % (0.00-5.0); Eosinophil (Absolute #) 0.02 (0-0.5); Hemoglobin 13.2 gm/dl (12.0-16.0); Lymphocyte (Absolute #) 1.35 (1.0-4.6); Lymphocytes % 7.9 % (24.0-44.0); Mean Cell Volume 89.4 fl (78-100); Mean Corpuscular Hemoglobin 28.1 pg (26-32); Mean Corpuscular Hgb Concent. 31.4 g/dl (32-36); Mean Platelet Volume 9.9 fl (7.5-11.0); Monocyte (Absolute #) 0.84 (0.0-1.3); Monocytes % 4.9 % (0.0-12.0); Platelet Count 283 K/mm3 (150-450); Red Cell Distribution Width 14.9 % (11.5-14.0)
[2020-11-22 22:37] LABS: ALBUMIN 4.2 g/dL (3.5-5.0); ANION GAP 14.1 MEQ/L (5-15); BILIRUBIN,TOTAL 0.3 mg/dL (0.2-1.3); Creatinine 1 1.36 mg/dL (0.52-1.04); EST GLOMERULAR FILTRATION RATE 42.2 ML/MIN; Potassium 4.3 mmol/L (3.5-5.1); Total Protein 7.2 g/dL (6.3-8.2)
[2020-11-22 22:48] LABS: Appearance CLOUDY (CLEAR); Bilirubin NEGATIVE (NEGATIVE); Blood SMALL Ery/ul (0-5); Epithelial Cells MODERATE /HPF (FEW); Glucose NEGATIVE (NEGATIVE); Ketones NEGATIVE (NEGATIVE); Leukocyte Esterase MODERATE (NEGATIVE); Mucus SLIGHT /HPF (NEGATIVE); Nitrite NEGATIVE (NEGATIVE); Protein,Urine Dip 30 (Negative); Specific Gravity 1.008 (1.005-1.025); Urobilinogen NEGATIVE mg/dL (0-1); WBC 26-50 /HPF (0-5)
[2020-11-22] MEDS ORDERED: ROCEPHIN 1 Gm-D5w 50 ml Bag** 1 G/50 ML IVPB IV STA (23:16)
[2020-11-22] MEDS ORDERED: ROCEPHIN 1 Gm-D5w 50 ml Bag** 1 G/50 ML IVPB IV ONE (23:26)
[2020-11-23 02:03] VITALS: O2SAT 98
[2020-11-23] MEDS ORDERED: Heparin 5000 UNITS/0.5 ML (HIGH RISK MED) IV ONE (02:15)
[2020-11-23] MEDS ORDERED: Heparin 5000 UNITS/0.5 ML (HIGH RISK MED) ONE (02:18)
[2020-11-23 02:21] VITALS: BP 122/82; PULSE 88
--- NOTE | 2020-11-23 09:02 | XRAY ---
Indication: Nausea, vomiting, and diarrhea. Elevated d-dimer. Multiple contiguous images obtained through the chest using 80 cc Isovue 370 contrast and PE protocol. Comparison: January 25, 2012. There is good opacification of the pulmonary arteries including lobar and segmental branches. No pulmonary embolus. Heart is not enlarged. Aorta mildly arteriosclerotic without aneurysm/dissection. New small left hilar calcified nodes. No pathologic lymphadenopathy. Lungs again demonstrates mild bilateral dependent atelectasis, mild pulmonary emphysema, and biapical pleural parenchymal fibrosis/scarring. No suspicious pulmonary mass, infiltrate, or effusion. Bony thorax intact with minimal degenerative changes throughout the spine. CT abdomen/pelvis reported separately. Impression: 1. Negative pulmonary embolus. No acute cardiopulmonary abnormalities. 2. Stable pulmonary emphysema and biapical pleural parenchymal fibrosis/scarring. 3. Incidental old granulomatous disease. Comment: Preliminary interpretation was made by [facility]. No critical discrepancy.
--- NOTE | 2020-11-23 09:04 | XRAY ---
Indication: Nausea, vomiting, and diarrhea. Multiple contiguous images obtained through the abdomen and pelvis using 80 cc Isovue 370 contrast and PE protocol. Comparison: November 24, 2018. CT chest reported separately. Noncontrasted stomach and bowel loops nonobstructed. Interval appendectomy. No free fluid/air. Stable bilateral renal cortical thinning/scarring. Remaining liver, gallbladder, pancreas, spleen, adrenal glands, kidneys, ureters, bladder, and uterus are unremarkable. Again mild scattered aortoiliac calcifications. No AAA or pathologic retroperitoneal lymphadenopathy. Osseous structures intact again with mild degenerative changes of the lower lumbar spine. Impression: 1. Stable bilateral renal cortical thinning/scarring and chronic bony findings. 2. Remaining CT abdomen/pelvis with contrast exam is negative. Comment: Preliminary interpretation was made by [facility]. No critical discrepancy.
--- NOTE | 2020-11-23 09:06 | XRAY ---
Indication: Nausea, vomiting, diarrhea. Comparison: Chest exam October 02, 2017. 2 view abdomen nonacute and nonobstructed. Solid organs unremarkable. Mild multilevel lumbar degenerative spondylosis and mild scoliosis. Single PA chest remains clear. Heart and mediastinal structures within normal limits. Bony thorax intact. Impression: Negative abdomen. Nonacute 1 view chest.
== END 2020-11-23 02:45 | disposition short-term general hospital (02) ==
LOC: ED 21:19
DX: I21.4 Non-ST elevation (NSTEMI) myocardial infarction (principal); K52.9 Noninfective gastroenteritis and colitis, unspecified; N17.9 Acute kidney failure, unspecified; I12.9 Hypertensive chronic kidney disease with stage 1 through stage 4 chronic kidney disease, or unspecified chronic kidney disease; N18.9 Chronic kidney disease, unspecified
CPT/HCPCS: 36000; 36415; 71260; 74022; 74177; 80053; 81001; 82550; 82947; 83690; 83880; 84484; 85025; 85379; 85730; 87086; 93005; 93041; 96360; 96365; 96374; 99285; 99291; J0696; J1644; A9270-GY